=== PATIENT | male | born 1950 | race Caucasian/White ===

== ENCOUNTER 2018-01-11 08:04 | Inpatient (IN) | payer MEDICARE ==
[2018-01-11] VITALS (40 sets, daily range): BP systolic 99–132; BP diastolic 47–86
[~2018-01-11] VITALS: Ht 175.3 cm; Wt 95.4 kg
[~2018-01-11 08:04] MED LIST: AMIT10TA6 PO; AMLO5TAB2 PO; AMOX-429 PO; BENA20TA3 PO; CYCL10TA7 PO; FINA5TAB41 PO; GEMF600T3 PO; HYDR25TA PO; LEVO200T10 PO; MELO-108 PO; TAMS0.4C32 PO; ZOLP10TA2 PO
[2018-01-11] MEDS ORDERED: HEPARIN SODIUM 5000UNIT/ML 1ML VIAL ONE (08:11)
[2018-01-11] MEDS ORDERED: FENTANYL CITRATE PF 50 MCG/1 ML 2ML VIAL ONE ×2 (08:11→08:32)
[2018-01-11] MEDS ORDERED: LIDOCAINE HCL 2% 20ML ONE ×2 (08:14→10:29)
[2018-01-11] MEDS ORDERED: ISOVUE-370 50ML VIAL IV ONE (08:14)
[2018-01-11] MEDS ORDERED: IOPAMIDOL-370 100 ML VIAL IV ONE ×3 (08:14→10:28)
[2018-01-11] MEDS ORDERED: HEPARIN SODIUM 1000UNIT/ML 10ML VIAL ONE (08:14)
[2018-01-11] MEDS ORDERED: BIVALIRUDIN 250 MG/VIAL IV ONE ×3 (08:14→10:47)
[2018-01-11] MEDS ORDERED: DOPAMINE HCL 400 MG/D5%-WATER 0 ML IV ONE ×2 (08:15→10:28)
[2018-01-11] MEDS ORDERED: ATROPINE SULFATE 0.1 MG/ML 10 ML SYG IVP ONE ×2 (08:15→10:27)
[2018-01-11 08:20] LABS: BASOPHILS % (AUTO) 1.4 % (0.0-5.0); EOSINOPHILS % (AUTO) 2.6 % (0.0-8.0); HEMATOCRIT 38.5 % (42-54); LYMPHOCYTES % (AUTO) 44.6 % (21.0-51.0); MEAN CORPUSCULAR HEMOGLOBIN 30.7 pg (27.0-33.0); MEAN CORPUSCULAR HGB CONC 34.6 g/dL (32.0-36.0); MEAN CORPUSCULAR VOLUME 88.6 fL (79-99); MONOCYTES % (AUTO) 11.4 % (3.0-13.0); PLATELET COUNT (AUTO) 355 K/uL (130-400); RED BLOOD CELL COUNT(AUTO) 4.34 MIL/uL (4.50-6.20); RED CELL DISTRIBUTION WIDTH 13.4 % (11.0-15.5)
[2018-01-11] MEDS ORDERED: ONDANSETRON HCL MDV 20ML 2 MG/ML VIAL ONE ×2 (08:21→12:45)
[2018-01-11] MEDS ORDERED: MIDAZOLAM HCL 1 MG/ML 2ML VIAL ONE (08:31)
[2018-01-11] MEDS ORDERED: DiphenhydrAMINE HCL 50 MG/ML VIAL ONE (08:31)
[2018-01-11 08:36] LABS: PARTIAL THROMBOPLASTIN TIME 24.5 SEC (26.3-35.5); PROTHROMBIN TIME 10.5 SEC (9.6-11.6)
[2018-01-11 08:42] LABS: ALANINE AMINOTRANSFERASE 12 U/L (12-78); ALBUMIN 3.5 g/dL (3.5-5.0); ASPARTATE AMINOTRANSFERASE 18 U/L (10-37); BILIRUBIN,TOTAL 0.5 mg/dL (0.2-1.0); CARBON DIOXIDE 22 mmol/L (21-32); CHLORIDE 98 mmol/L (101-111); CREATINE KINASE MB < 0.5 ng/mL (0.5-3.6); CREATINE KINASE, TOTAL 172 U/L (21-232); CREATININE 1.1 mg/dL (0.5-1.5); GLOMERULAR FILTR. RATE CALC 71 mL/min (>60); GLUCOSE,RANDOM 178 mg/dL (70-105); SODIUM SERUM 133 mmol/L (136-145); TOTAL PROTEIN, SERUM 6.8 g/dL (6.0-8.3); UREA NITROGEN, BLOOD 14 mg/dL (7-18)
[2018-01-11 08:50] LABS: POTASSIUM 2.7 mmol/L (3.5-5.1)
[2018-01-11] MEDS ORDERED: MORPHINE SULFATE 2 MG/ML 1ML SYG ONE ×2 (08:59→09:06)
[2018-01-11] MEDS ORDERED: TICAGRELOR 90 MG TABLET ONE (09:44)
[2018-01-11] MEDS ORDERED: SODIUM CHLORIDE 0.9% 1000ML 1,000 ML IV SCH (09:59)
[2018-01-11] MEDS ORDERED: ONDANSETRON HCL 4 MG/2 ML VIAL IVP PRN (10:00)
[2018-01-11] MEDS ORDERED: ACETAMINOPHEN 325 MG TAB PO PRN (10:00)
[2018-01-11] MEDS ORDERED: ACETAMINOPHEN-CODEINE 300/30MG TAB PO PRN ×2 (10:00)
[2018-01-11] MEDS ORDERED: IOPAMIDOL-370 75 ML VIAL IV ONE (10:28)
[2018-01-11] MEDS ORDERED: NITROGLYCERIN 5 MG/ML 10 ML VIAL IV ONE (10:34)
[2018-01-11] MEDS ORDERED: EPTIFIBATIDE 2 MG/ML 10 ML VIAL IVP ONE (10:53)
[2018-01-11] MEDS ORDERED: EPTIFIBATIDE 75MG/100ML BOTTLE 100 ML IV ONE (10:53)
[2018-01-11] MEDS ORDERED: ONDANSETRON HCL MDV 20ML 2 MG/ML VIAL IVP PRN (13:00)
[2018-01-11] MEDS ORDERED: POTASSIUM CHLORIDE 10% ELIXIR 20 MEQ/15 ML UDCUP PO PRN (13:45)
[2018-01-11] MEDS ORDERED: AMIODARONE HCL 150 MG in DEXTROSE 5%-WATER 100 ML IV SCH (13:45)
[2018-01-11] MEDS ORDERED: AMIODARONE HCL 900 MG in DEXTROSE 5%-WATER 500 ML IV SCH (13:45)
[2018-01-11] MEDS ORDERED: LIDOCAINE HCL-MPF 1% 2ML VIAL IVP PRN (13:45)
[2018-01-11] MEDS: POTASSIUM CHLORIDE 20MEQ/100ML 100 ML IV PRN ×2 (13:56→14:45)
[2018-01-11] MEDS ORDERED: MAGNESIUM 2GM PREMIX 50ML 50 ML IV PRN (14:30)
[2018-01-11 16:09] LABS: CREATININE 0.9 mg/dL (0.5-1.5); MAGNESIUM 2.3 mg/dL (1.80-2.40); POTASSIUM 4.2 mmol/L (3.5-5.1)
[2018-01-11] MEDS: EPTIFIBATIDE 75MG/100ML BOTTLE 100 ML IV SCH ×2 (16:28→22:55)
[2018-01-11] MEDS ORDERED: METOPROLOL TARTRATE 25 MG TAB PO SCH (16:30)
[2018-01-11] MEDS ORDERED: [UNRECOGNIZED DRUG - OTHER] PO (18:44)
[2018-01-11] MEDS: METOPROLOL TARTRATE 25 MG TAB PO SCH (21:51)
[2018-01-11] MEDS: ATORVASTATIN CALCIUM 20 MG TABLET PO SCH (21:51)
[2018-01-11] MEDS: TICAGRELOR 90 MG TABLET PO SCH (21:52)
[2018-01-11] MEDS: TEMAZEPAM 30 MG CAP PO PRN (22:03)
[2018-01-12] VITALS (10 sets, daily range): BP systolic 90–128; BP diastolic 45–76
[2018-01-12 03:30] LABS: HEMATOCRIT 33.1 % (42-54); MEAN CORPUSCULAR HEMOGLOBIN 32.2 pg (27.0-33.0); MEAN CORPUSCULAR HGB CONC 36.1 g/dL (32.0-36.0); MEAN CORPUSCULAR VOLUME 89.3 fL (79-99); PLATELET COUNT (AUTO) 285 K/uL (130-400); RED CELL DISTRIBUTION WIDTH 13.8 % (11.0-15.5); WHITE BLOOD COUNT (AUTO) 11.1 K/uL (4.8-10.8)
[2018-01-12 04:02] LABS: CREATINE KINASE MB 198.2 ng/mL (0.5-3.6); CREATININE 0.9 mg/dL (0.5-1.5); MAGNESIUM 2.1 mg/dL (1.80-2.40); POTASSIUM 3.2 mmol/L (3.5-5.1); THYROID STIMULATING HORMONE 0.07 uIU/mL (0.36-3.74)
[2018-01-12 04:49] LABS: TROPONIN I 53.13 ng/mL (0.00-0.06)
[2018-01-12] MEDS: LISINOPRIL 10 MG TABLET PO SCH (08:31)
[2018-01-12] MEDS: FAMOTIDINE 20MG TAB 20 MG TAB PO SCH ×2 (08:31→20:22)
[2018-01-12] MEDS: ASPIRIN 81MG TAB.CHEW PO SCH (08:31)
[2018-01-12] MEDS: METOPROLOL TARTRATE 25 MG TAB PO SCH ×2 (08:31→20:22)
[2018-01-12] MEDS: TICAGRELOR 90 MG TABLET PO SCH ×2 (08:31→20:22)
[2018-01-12] MEDS: AMIODARONE HCL 200 MG TABLET PO SCH ×2 (09:36→20:22)
[2018-01-12] MEDS: LEVOTHYROXINE 100 MCG TABLET PO SCH (09:53)
[2018-01-12] MEDS: BENAZEPRIL HCL 10 MG TABLET PO SCH (12:00)
[2018-01-12] MEDS: FINASTERIDE 5 MG TABLET PO SCH (12:13)
[2018-01-12] MEDS: POTASSIUM CHLORIDE 20 MEQ ERTAB PO PRN ×2 (20:21→23:07)
[2018-01-12] MEDS: ATORVASTATIN CALCIUM 20 MG TABLET PO SCH (20:22)
[2018-01-12] MEDS: TAMSULOSIN HCL 0.4 MG CAP.ER.24H PO SCH (20:22)
[2018-01-12] MEDS: GEMFIBROZIL 600 MG TABLET PO SCH (20:22)
[2018-01-12] MEDS: [UNRECOGNIZED DRUG - OTHER] PO SCH (21:00)
[2018-01-12] MEDS: TEMAZEPAM 30 MG CAP PO PRN (21:27)
[2018-01-13] VITALS: BP 97/68
[2018-01-13 04:00] VITALS: BP 98/66
[2018-01-13 04:13] LABS: CREATININE 0.9 mg/dL (0.5-1.5); POTASSIUM 3.7 mmol/L (3.5-5.1)
[2018-01-13] MEDS: POTASSIUM CHLORIDE 20 MEQ ERTAB PO PRN ×2 (06:51→10:02)
[2018-01-13] MEDS: LEVOTHYROXINE 100 MCG TABLET PO SCH (06:52)
[2018-01-13 07:36] VITALS: BP 123/76
[2018-01-13] MEDS ORDERED: AMLODIPINE BESYLATE 5 MG TAB PO SCH (09:00)
[2018-01-13] MEDS ORDERED: HYDROCHLOROTHIAZIDE 25 MG TABLET PO SCH (09:00)
[2018-01-13] MEDS: [UNRECOGNIZED DRUG - OTHER] PO SCH (09:00)
[2018-01-13] MEDS ORDERED: TICA90TA PO (09:15)
[2018-01-13] MEDS ORDERED: METO25 PO (09:15)
[2018-01-13] MEDS ORDERED: ASPI-1005 PO (09:15)
[2018-01-13] MEDS ORDERED: ATOR20TA65 PO (09:15)
[2018-01-13] MEDS: TICAGRELOR 90 MG TABLET PO SCH (10:00)
[2018-01-13] MEDS: LISINOPRIL 10 MG TABLET PO SCH (10:00)
[2018-01-13] MEDS: AMIODARONE HCL 200 MG TABLET PO SCH (10:00)
[2018-01-13] MEDS: GEMFIBROZIL 600 MG TABLET PO SCH (10:00)
[2018-01-13] MEDS: FAMOTIDINE 20MG TAB 20 MG TAB PO SCH (10:01)
[2018-01-13] MEDS: METOPROLOL TARTRATE 25 MG TAB PO SCH (10:01)
[2018-01-13] MEDS: TAMSULOSIN HCL 0.4 MG CAP.ER.24H PO SCH (10:01)
[2018-01-13] MEDS: ASPIRIN 81MG TAB.CHEW PO SCH (10:01)
[2018-01-13] MEDS: PHENAZOPYRIDINE HCL 200 MG TABLET PO SCH ×2 (10:55→19:10)
[2018-01-13 11:26] VITALS: BP 112/74
[2018-01-13] MEDS: BENAZEPRIL HCL 10 MG TABLET PO SCH (12:00)
[2018-01-13] MEDS: FINASTERIDE 5 MG TABLET PO SCH (13:58)
[2018-01-13 16:38] VITALS: BP 102/59
[2018-01-13] MEDS ORDERED: PHENAZOPYRIDINE HCL 200 MG TABLET PO SCH (21:00)
== END 2018-01-13 19:11 | disposition home or self-care (01) | DRG 246 ==
LOC: EDH 08:04 → EDHIP 08:25 → 2CV 12:10 → 2BH 18:32 → 2AH 01-12 20:56
PROVIDERS: ADMIT Internal Medicine Cardiovascular Disease; ATTEND Internal Medicine Cardiovascular Disease
PROC: 027034Z Dilation of Coronary Artery, One Artery with Drug-eluting Intraluminal Device, Percutaneous Approach (ICD-10-PCS; principal; 2018-01-11)
PROC: B2151ZZ Fluoroscopy of Left Heart using Low Osmolar Contrast (ICD-10-PCS; 2018-01-11)
PROC: 4A023N8 Measurement of Cardiac Sampling and Pressure, Bilateral, Percutaneous Approach (ICD-10-PCS; 2018-01-11)
PROC: B2111ZZ Fluoroscopy of Multiple Coronary Arteries using Low Osmolar Contrast (ICD-10-PCS; 2018-01-11)
DX: I21.09 ST elevation (STEMI) myocardial infarction involving other coronary artery of anterior wall (principal); I50.23 Acute on chronic systolic (congestive) heart failure; I47.2 Ventricular tachycardia; I48.91 Unspecified atrial fibrillation; E83.42 Hypomagnesemia; N31.9 Neuromuscular dysfunction of bladder, unspecified; E03.9 Hypothyroidism, unspecified; Q05.9 Spina bifida, unspecified; E87.6 Hypokalemia; I10 Essential (primary) hypertension; M19.90 Unspecified osteoarthritis, unspecified site; Z80.0 Family history of malignant neoplasm of digestive organs; Z82.49 Family history of ischemic heart disease and other diseases of the circulatory system
CPT/HCPCS: 36415; 71045; 80048; 80053; 80061; 82550; 82553; 83735; 83874; 84443; 84484; 85025; 85027; 85347; 85610; 85730; 93005; 93306; 93458; 99152; 99153; A4344; C1725; C1760; C1769; C1887; C1894; C9600; C9606; J0282; J0461; J0583; J1200; J1265; J1327; J1644; J2250; J3010; J3475; J3480; J3490; J7060; Q9967

== ENCOUNTER 2018-01-29 19:27 | Emergency (ER) | payer MEDICARE ==
[~2018-01-29 19:27] MED LIST changes: -AMIT10TA6 PO; -AMLO5TAB2 PO; -AMOX-429 PO; +ASPI-1005 PO; +ATOR20TA65 PO; +BENA20TA10 PO; -BENA20TA3 PO; -CYCL10TA7 PO; -HYDR25TA PO; +METO25 PO; +TICA90TA PO; -ZOLP10TA2 PO
[2018-01-29 19:42] LABS: BASOPHILS % (AUTO) 1.2 % (0.0-5.0); EOSINOPHILS % (AUTO) 3.2 % (0.0-8.0); HEMATOCRIT 36.7 % (42-54); MEAN CORPUSCULAR HEMOGLOBIN 30.6 pg (27.0-33.0); MEAN CORPUSCULAR VOLUME 90.1 fL (79-99); MONOCYTES % (AUTO) 9.9 % (3.0-13.0); NEUTROPHILS % (AUTO) 67.7 % (40.0-77.0); PLATELET COUNT (AUTO) 429 K/uL (130-400); RED BLOOD CELL COUNT(AUTO) 4.08 MIL/uL (4.50-6.20); RED CELL DISTRIBUTION WIDTH 14.2 % (11.0-15.5)
[2018-01-29 19:51] LABS: CREATININE 1.2 mg/dL (0.5-1.5); POTASSIUM 3.4 mmol/L (3.5-5.1)
[2018-01-29 19:52] LABS: PARTIAL THROMBOPLASTIN TIME 26.8 SEC (26.3-35.5); PROTHROMBIN TIME 10.5 SEC (9.6-11.6)
[2018-01-29 19:56] LABS: ALBUMIN 3.5 g/dL (3.5-5.0); BILIRUBIN,TOTAL 0.4 mg/dL (0.2-1.0); TOTAL PROTEIN, SERUM 7.1 g/dL (6.0-8.3)
[2018-01-29] MEDS ORDERED: ACETAMINOPHEN 325 MG TAB ONE (20:33)
== END 2018-01-29 20:57 | disposition home or self-care (01) ==
LOC: EDH 19:27
DX: S00.03XA Contusion of scalp, initial encounter (principal); I10 Essential (primary) hypertension; E07.9 Disorder of thyroid, unspecified; E78.00 Pure hypercholesterolemia, unspecified; M19.90 Unspecified osteoarthritis, unspecified site; I25.2 Old myocardial infarction; K75.9 Inflammatory liver disease, unspecified; Z90.49 Acquired absence of other specified parts of digestive tract; Z98.890 Other specified postprocedural states; W22.8XXA Striking against or struck by other objects, initial encounter; Y93.89 Activity, other specified; Y92.098 Other place in other non-institutional residence as the place of occurrence of the external cause; Y99.8 Other external cause status
CPT/HCPCS: 36415; 70450; 80053; 85025; 85610; 85730

== ENCOUNTER 2018-12-10 08:20 | Inpatient (IN) | payer MEDICARE ==
[~2018-12-10] VITALS: Ht 175.3 cm; Wt 96.1 kg
[~2018-12-10 08:20] MED LIST changes: -GEMF600T3 PO; +GEMF600T5 PO
[2018-12-10 09:10] LABS: BASOPHILS % (AUTO) 0.3 % (0.0-5.0); EOSINOPHILS % (AUTO) 0.1 % (0.0-8.0); LYMPHOCYTES % (AUTO) 3.5 % (21.0-51.0); MEAN CORPUSCULAR HEMOGLOBIN 30.3 pg (27.0-33.0); MEAN CORPUSCULAR HGB CONC 33.6 g/dL (32.0-36.0); MEAN CORPUSCULAR VOLUME 90.2 fL (79-99); MONOCYTES % (AUTO) 6.5 % (3.0-13.0); NEUTROPHILS % (AUTO) 89.6 % (40.0-77.0); PLATELET COUNT (AUTO) 360 K/uL (130-400); RED CELL DISTRIBUTION WIDTH 14.5 % (11.0-15.5); WHITE BLOOD COUNT (AUTO) 19.3 K/uL (4.8-10.8)
[2018-12-10 09:14] LABS: APPEARANCE,URINE Clear (CLEAR); BILIRUBIN,URINE Negative (NEGATIVE); COLOR,URINE Yellow (YELLOW); GLUCOSE, URINE (UA) Negative (NEGATIVE); KETONES,URINE Trace mg/dL (NEGATIVE); LEUKOCYTE ESTERASE ,URINE Moderate (NEGATIVE); NITRATE,URINE Negative (NEGATIVE); OCCULT BLOOD,URINE Negative (NEGATIVE); PH,URINE >=9.0 (5.0-8.0); PROTEIN,URINE Negative (NEGATIVE)
[2018-12-10] MEDS ORDERED: ACETAMINOPHEN EXTRA STRENGTH 500 MG TABLET ONE (09:16)
[2018-12-10] MEDS ORDERED: SODIUM CHLORIDE 0.9% 1000ML 1,000 ML IV ONE ×4 (09:16→16:44)
[2018-12-10 09:28] LABS: INR 0.98 (0.85-1.15); PARTIAL THROMBOPLASTIN TIME 25.6 SEC (26.3-35.5); PROTHROMBIN TIME 10.3 SEC (9.6-11.6)
[2018-12-10 09:30] LABS: CARBON DIOXIDE 22 mmol/L (21-32); CHLORIDE 100 mmol/L (101-111); CREATININE 0.9 mg/dL (0.5-1.5); GLOMERULAR FILTR. RATE CALC 89 mL/min (>60); GLUCOSE,RANDOM 147 mg/dL (70-105); POTASSIUM 3.4 mmol/L (3.5-5.1); SODIUM SERUM 134 mmol/L (136-145); UREA NITROGEN, BLOOD 15 mg/dL (7-18)
[2018-12-10 09:38] LABS: BACTERIA,URINE None Seen /HPF (None Seen); RBC,URINE 0-1 /HPF (0-1); SQUAMOUS EPITHELIAL CELL,UR 0-2 /HPF (0-2)
[2018-12-10 09:42] LABS: ALANINE AMINOTRANSFERASE 16 U/L (12-78); ALBUMIN 3.6 g/dL (3.5-5.0); ASPARTATE AMINOTRANSFERASE 27 U/L (10-37); BILIRUBIN,TOTAL 0.9 mg/dL (0.2-1.0); CREATINE KINASE, TOTAL 250 U/L (21-232); MYOGLOBIN 76 ng/mL (10-92); TOTAL PROTEIN, SERUM 7.2 g/dL (6.0-8.3); TROPONIN I < 0.04 ng/mL (0.00-0.06)
[2018-12-10] MEDS ORDERED: SODIUM CHLORIDE 0.9% 50 ML IV ONE (10:47)
[2018-12-10] MEDS ORDERED: CEFTRIAXONE SODIUM 1 GM ONE (10:47)
[2018-12-10] MEDS ORDERED: ONDANSETRON HCL 4 MG/2 ML VIAL IV PRN (12:45)
[2018-12-10] MEDS ORDERED: ACETAMINOPHEN 325 MG TAB PO PRN ×2 (12:45)
[2018-12-10] MEDS ORDERED: MORPHINE SULFATE 2 MG/ML 1ML SYG IV PRN (12:45)
[2018-12-10] MEDS ORDERED: LACTULOSE 20 GM/30 ML UDCUP PO PRN (12:45)
[2018-12-10] MEDS ORDERED: HYDRALAZINE HCL 20 MG/ML VIAL IV PRN (12:45)
[2018-12-10 16:29] VITALS: BP 148/81
[2018-12-10] MEDS ORDERED: FURO20TA4 PO (16:29)
[2018-12-10] MEDS ORDERED: AMLO5TAB9 PO (16:29)
[2018-12-10] MEDS ORDERED: NITR0.4T50 SL (16:29)
[2018-12-10] MEDS ORDERED: ENOXAPARIN SODIUM 40 MG/0.4 ML SYRINGE SQ ONE (16:44)
[2018-12-10] MEDS ORDERED: SODIUM CHLORIDE 0.9% 100 ML IV ONE (16:45)
[2018-12-10] MEDS ORDERED: ZOSYN 3.375GM+NS 50ML 50 ML IV ONE (16:45)
[2018-12-10] MEDS ORDERED: ACETAMINOPHEN 325 MG TAB ONE (17:03)
[2018-12-10] MEDS: ZOSYN 3.375GM+NS 50ML 50 ML IV SCH (21:00)
[2018-12-10] MEDS: FAMOTIDINE/PF 20 MG/2 ML VIAL IV SCH (21:00)
[2018-12-10] MEDS: SODIUM CHLORIDE 0.9% 1000ML 1,000 ML IV SCH (22:34)
[2018-12-10 23:00] VITALS: BP 117/71
[2018-12-10] MEDS ORDERED: ASPI-1181 PO (23:41)
[2018-12-11 04:30] VITALS: BP 112/64
[2018-12-11] MEDS: ZOSYN 3.375GM+NS 50ML 50 ML IV SCH ×3 (04:53→21:38)
[2018-12-11 08:00] VITALS: BP 121/67
[2018-12-11] MEDS: ENOXAPARIN SODIUM 40 MG/0.4 ML SYRINGE SQ SCH ×2 (09:00→09:28)
[2018-12-11] MEDS: FAMOTIDINE/PF 20 MG/2 ML VIAL IV SCH ×2 (11:09→21:38)
[2018-12-11 11:26] LABS: BASOPHILS % (AUTO) 0.7 % (0.0-5.0); EOSINOPHILS % (AUTO) 0.6 % (0.0-8.0); HEMATOCRIT 33.5 % (42-54); LYMPHOCYTES % (AUTO) 9.1 % (21.0-51.0); MEAN CORPUSCULAR HEMOGLOBIN 30.1 pg (27.0-33.0); MEAN CORPUSCULAR HGB CONC 33.2 g/dL (32.0-36.0); MEAN CORPUSCULAR VOLUME 90.7 fL (79-99); MONOCYTES % (AUTO) 7.5 % (3.0-13.0); NEUTROPHILS % (AUTO) 82.1 % (40.0-77.0); NUCLEATED RED BLOOD CELLS 0.1 % (0.0-0.19); PLATELET COUNT (AUTO) 291 K/uL (130-400); RED CELL DISTRIBUTION WIDTH 14.9 % (11.0-15.5); WHITE BLOOD COUNT (AUTO) 14.2 K/uL (4.8-10.8)
[2018-12-11 11:50] LABS: POTASSIUM 3.5 mmol/L (3.5-5.1)
[2018-12-11 12:00] VITALS: BP 115/77
[2018-12-11] MEDS: SODIUM CHLORIDE 0.9% 1000ML 1,000 ML IV SCH ×2 (13:07→17:58)
[2018-12-11 16:00] VITALS: BP 114/67
[2018-12-11] MEDS ORDERED: ATORVASTATIN CALCIUM 40 MG TABLET PO SCH (21:00)
[2018-12-11 21:35] VITALS: BP 130/84
[2018-12-11] MEDS: TICAGRELOR 90 MG TABLET PO SCH (21:38)
[2018-12-11] MEDS: METOPROLOL TARTRATE 25 MG TAB PO SCH (21:38)
[2018-12-12 01:28] VITALS: BP 114/60
[2018-12-12 04:33] LABS: HEMATOCRIT 30.4 % (42-54); MEAN CORPUSCULAR HEMOGLOBIN 30.9 pg (27.0-33.0); MEAN CORPUSCULAR HGB CONC 34.3 g/dL (32.0-36.0); MEAN CORPUSCULAR VOLUME 90.2 fL (79-99); PLATELET COUNT (AUTO) 269 K/uL (130-400); RED BLOOD CELL COUNT(AUTO) 3.37 MIL/uL (4.50-6.20); RED CELL DISTRIBUTION WIDTH 14.9 % (11.0-15.5); WHITE BLOOD COUNT (AUTO) 10.2 K/uL (4.8-10.8)
[2018-12-12 04:57] VITALS: BP 108/65
[2018-12-12 04:57] LABS: ALBUMIN 2.6 g/dL (3.5-5.0); BILIRUBIN,TOTAL 0.5 mg/dL (0.2-1.0); CREATININE 0.9 mg/dL (0.5-1.5); MAGNESIUM 1.7 mg/dL (1.80-2.40); POTASSIUM 3.3 mmol/L (3.5-5.1); TOTAL PROTEIN, SERUM 5.8 g/dL (6.0-8.3)
[2018-12-12] MEDS: ZOSYN 3.375GM+NS 50ML 50 ML IV SCH ×2 (05:07→14:41)
[2018-12-12] MEDS: SODIUM CHLORIDE 0.9% 1000ML 1,000 ML IV SCH ×2 (05:07→12:01)
[2018-12-12] MEDS ORDERED: LEVOTHYROXINE 100 MCG TABLET PO SCH (06:30)
[2018-12-12 08:00] VITALS: BP 120/71
--- NOTE | 2018-12-12 08:28 | NUR ---
PAGED HOSPITALIST PAGED LEADERSHIP INTERN HOSPITALIST USING ANSWERING SERVICE REGARDING POTASSIUM 3.3 AND MAGNESIUM 1.7. AWAITING CALLBACK.
[2018-12-12] MEDS ORDERED: MAGNESIUM 2GM PREMIX 50ML 50 ML IV PRN (08:45)
[2018-12-12] MEDS ORDERED: POTASSIUM CHLORIDE 10% ELIXIR 20 MEQ/15 ML UDCUP PO PRN (08:45)
[2018-12-12] MEDS ORDERED: POTASSIUM CHLORIDE 20MEQ/100ML 100 ML IV PRN (08:45)
[2018-12-12] MEDS ORDERED: LIDOCAINE HCL-MPF 1% 2ML VIAL IVP PRN (08:45)
[2018-12-12] MEDS: METOPROLOL TARTRATE 25 MG TAB PO SCH (09:00)
[2018-12-12] MEDS ORDERED: AMLODIPINE BESYLATE 5 MG TAB PO SCH (09:00)
[2018-12-12] MEDS ORDERED: ASPIRIN 81 MG EC TAB PO SCH (09:00)
[2018-12-12] MEDS: TICAGRELOR 90 MG TABLET PO SCH (09:00)
[2018-12-12] MEDS: POTASSIUM CHLORIDE 20 MEQ ERTAB PO PRN ×3 (10:36→16:57)
[2018-12-12] MEDS: FAMOTIDINE/PF 20 MG/2 ML VIAL IV SCH (10:37)
[2018-12-12] MEDS: ENOXAPARIN SODIUM 40 MG/0.4 ML SYRINGE SQ SCH (10:38)
[2018-12-12 11:00] VITALS: BP 114/68
[2018-12-12] MEDS ORDERED: MELOXICAM 7.5 MG TABLET PO SCH (12:00)
[2018-12-12] MEDS ORDERED: BENAZEPRIL HCL 10 MG TABLET PO SCH (12:00)
[2018-12-12 16:00] VITALS: BP 108/69
--- NOTE | 2018-12-12 17:00 | NUR ---
DISCHARGE TEACHING DISCHARGE TEACHING PROVIDED TO PATIENT. PROVIDED RX TEACHING AND ORIGINAL RX GIVEN TO PATIENT. PATIENT SELF-CATHETERIZES AT HOME, PROVIDED AT HOME URINE STRAIGHT CATHETER TEACHING. PATIENT VERBALIZED TEACHING OF DISCHARGE TEACHING. REMOVED 20G IV FROM LEFT FA, CATHETER INTACT.
== END 2018-12-12 17:24 | disposition home or self-care (01) | DRG 872 ==
LOC: EDH 08:20 → EDHIP 12:34 → 4CH 22:32
PROVIDERS: ADMIT Internal Medicine; ATTEND Internal Medicine
DX: A41.50 Gram-negative sepsis, unspecified (principal); E87.1 Hypo-osmolality and hyponatremia; N39.0 Urinary tract infection, site not specified; E86.1 Hypovolemia; Q05.9 Spina bifida, unspecified; E03.9 Hypothyroidism, unspecified; I10 Essential (primary) hypertension; N31.9 Neuromuscular dysfunction of bladder, unspecified; E87.6 Hypokalemia; M19.90 Unspecified osteoarthritis, unspecified site; I25.10 Atherosclerotic heart disease of native coronary artery without angina pectoris; E66.9 Obesity, unspecified; Z68.31 Body mass index [BMI] 31.0-31.9, adult; I25.2 Old myocardial infarction; Z87.891 Personal history of nicotine dependence; Z95.5 Presence of coronary angioplasty implant and graft; Z87.440 Personal history of urinary (tract) infections; Z80.0 Family history of malignant neoplasm of digestive organs; Z80.3 Family history of malignant neoplasm of breast; Z82.0 Family history of epilepsy and other diseases of the nervous system; Z82.49 Family history of ischemic heart disease and other diseases of the circulatory system; Z83.3 Family history of diabetes mellitus; Z82.5 Family history of asthma and other chronic lower respiratory diseases; Z82.3 Family history of stroke
CPT/HCPCS: 36415; 71045; 80048; 80053; 81001; 82550; 83605; 83735; 83874; 84484; 85025; 85027; 85610; 85730; 87040; 87088; 87804; 93005; 99291; G0378; J0696; J1650; J2543; J3475; J3490; J7030

== ENCOUNTER 2020-01-19 20:53 | Inpatient (IN) | payer MEDICARE ==
[~2020-01-19] VITALS: Ht 175.3 cm; Wt 90.3 kg
[~2020-01-19 20:53] MED LIST changes: +AMLO5TAB9 PO; -ASPI-1005 PO; +ASPI-1181 PO; +FURO20TA4 PO; +NITR0.4T50 SL
[2020-01-19 21:20] LABS: EOSINOPHILS % (AUTO) 2.4 % (0.0-8.0); LYMPHOCYTES % (AUTO) 17.7 % (21.0-51.0); MEAN CORPUSCULAR HEMOGLOBIN 29.5 pg (27.0-33.0); MEAN CORPUSCULAR HGB CONC 34.5 g/dL (32.0-36.0); MEAN CORPUSCULAR VOLUME 85.5 fL (79-99); MONOCYTES % (AUTO) 9.1 % (3.0-13.0); NEUTROPHILS % (AUTO) 69.4 % (40.0-77.0); PLATELET COUNT (AUTO) 393 K/uL (130-400); RED BLOOD CELL COUNT(AUTO) 3.86 MIL/uL (4.50-6.20); RED CELL DISTRIBUTION WIDTH 19.9 % (11.0-15.5)
[2020-01-19 21:23] LABS: APPEARANCE,URINE Clear (CLEAR); BILIRUBIN,URINE Moderate (NEGATIVE); COLOR,URINE Dark Yellow (YELLOW); GLUCOSE, URINE (UA) Negative (NEGATIVE); KETONES,URINE Negative (NEGATIVE); LEUKOCYTE ESTERASE ,URINE Negative (NEGATIVE); NITRATE,URINE Negative (NEGATIVE); OCCULT BLOOD,URINE Trace (NEGATIVE); PROTEIN,URINE Negative (NEGATIVE)
[2020-01-19 21:29] LABS: WBC,URINE 0-1 /HPF (0-1)
[2020-01-19 21:30] LABS: BACTERIA,URINE Rare /HPF (None Seen); SQUAMOUS EPITHELIAL CELL,UR Rare /HPF (0-2)
[2020-01-19 21:40] LABS: CREATININE 0.9 mg/dL (0.5-1.5); POTASSIUM 3.4 mmol/L (3.5-5.1)
[2020-01-19 21:42] LABS: INR 0.95 (0.85-1.15); PARTIAL THROMBOPLASTIN TIME 28.2 SEC (26.3-35.5); PROTHROMBIN TIME 10.3 SEC (9.6-11.6)
[2020-01-19 21:52] LABS: ALBUMIN 3.1 g/dL (3.5-5.0); BILIRUBIN,TOTAL 15.2 mg/dL (0.2-1.0); TOTAL PROTEIN, SERUM 7.1 g/dL (6.0-8.3)
[2020-01-19 21:55] LABS: BILIRUBIN,DIRECT 12.8 mg/dL (0.0-0.3)
[2020-01-19] MEDS ORDERED: IOHEXOL-350 75 ML VIAL IV ONE (22:08)
[2020-01-19] MEDS ORDERED: MORPHINE SULFATE 4 MG/1ML SYG ONE (22:12)
[2020-01-19] MEDS ORDERED: ONDANSETRON HCL 4 MG/2 ML VIAL ONE (22:13)
[2020-01-19] MEDS ORDERED: SODIUM CHLORIDE 0.9% 500ML 500 ML IV ONE (22:13)
[2020-01-19] MEDS ORDERED: ZOSYN 3.375GM+NS 50ML 50 ML IV ONE (23:02)
[2020-01-19] MEDS: PANTOPRAZOLE 40 MG/VIAL IVP SCH (23:46)
[2020-01-20] VITALS (7 sets, daily range): BP systolic 112–135; BP diastolic 63–79
[2020-01-20] MEDS ORDERED: LIDOCAINE HCL-MPF 1% 2ML VIAL IV PRN (00:15)
--- NOTE | 2020-01-20 02:07 | NUR ---
SPOKE WITH MALI SEAY ABOUT PATIENT COMPLAINED OF HEADACHE 4/10, WITH NAUSEA. INFORMED HER THAT ZOFRAN IV HAS BEEN GIVEN PRN ORDERED. MALI ORDERED FINAL WOULD BE 650 MG ONE TIME DOSE.
[2020-01-20] MEDS: MORPHINE SULFATE 2 MG/ML 1ML SYG IVP PRN ×3 (02:43→20:19)
[2020-01-20] MEDS ORDERED: GEMF600T5 PO (06:58)
[2020-01-20] MEDS: ONDANSETRON HCL 4 MG/2 ML VIAL IV PRN (07:03)
[2020-01-20 07:24] LABS: BASOPHILS % (AUTO) 0.9 % (0.0-5.0); LYMPHOCYTES % (AUTO) 9.9 % (21.0-51.0); MEAN CORPUSCULAR HEMOGLOBIN 28.4 pg (27.0-33.0); MEAN CORPUSCULAR HGB CONC 32.9 g/dL (32.0-36.0); MEAN CORPUSCULAR VOLUME 86.4 fL (79-99); MONOCYTES % (AUTO) 9.1 % (3.0-13.0); NEUTROPHILS % (AUTO) 77.6 % (40.0-77.0); PLATELET COUNT (AUTO) 372 K/uL (130-400); RED BLOOD CELL COUNT(AUTO) 3.59 MIL/uL (4.50-6.20); WHITE BLOOD COUNT (AUTO) 9.6 K/uL (4.8-10.8)
--- NOTE | 2020-01-20 08:15 | NUR ---
GI CONSULT PAGED DR. GARCIA AT THIS TIME REGARDING NEW CONSULT. NO ANSWER AT THIS TIME.
[2020-01-20 09:18] LABS: ALBUMIN 2.6 g/dL (3.5-5.0); CREATININE 0.8 mg/dL (0.5-1.5); POTASSIUM 3.4 mmol/L (3.5-5.1); TOTAL PROTEIN, SERUM 6.3 g/dL (6.0-8.3)
[2020-01-20 09:25] LABS: BILIRUBIN,DIRECT 14.6 mg/dL (0.0-0.3); BILIRUBIN,TOTAL 17.1 mg/dL (0.2-1.0)
[2020-01-20] MEDS: PANTOPRAZOLE 40 MG/VIAL IVP SCH (10:09)
[2020-01-20] MEDS: LACTULOSE 20 GM/30 ML UDCUP PO SCH ×2 (10:09→21:00)
--- NOTE | 2020-01-20 10:30 | NUR ---
SPOKE TO DR PEREZ REGARDING PT COMPLAINT OF SEVERE WEAKNESS. INFORMED PT IS NPO AND NO IV FLUIDS INFUSING. NO ORDERS GIVEN, STATED WILL BE UP TO SEE PT.
--- NOTE | 2020-01-20 11:55 | NUR ---
INITIAL Patient lives with spouse, Marshall Cameron, [phone]. No home services. DME: BPM, cane, shower chair. Patient is able to complete ADL's independently and drives. PCP is Dr. Mike Burgess. Pharmacy is [facility] in [place]. DCP is home Addendum: 01/20/20 at 1159 by DOMENICA OLEARY SS Amended: Links added.
--- NOTE | 2020-01-20 15:15 | NUR ---
SPOKE TO DR. GARCIA REGARDING NEW CONSULT AND RESULTS FROM IMAGING AND LABS. NEW ORDERS RECEIVED FOR ERCP AT 1000 IN AM AND START FULL LIQUID DIET THEN NPO AFTER MIDNIGHT. PATIENT INFORMED BY DR. PEREZ AND VOICED UNDERSTANDING.
[2020-01-20] MEDS ORDERED: ACETAMINOPHEN EXTRA STRENGTH 500 MG TABLET ONE (23:46)
[2020-01-20] MEDS ORDERED: ACETAMINOPHEN 325 MG TAB ONE (23:49)
[2020-01-21] VITALS (22 sets, daily range): BP systolic 110–160; BP diastolic 51–86
[2020-01-21] MEDS ORDERED: ACETAMINOPHEN 325 MG TAB ONE (01:58)
[2020-01-21] MEDS ORDERED: ACETAMINOPHEN 325 MG TAB PO ONE (02:00)
[2020-01-21] MEDS: ONDANSETRON HCL 4 MG/2 ML VIAL IV PRN (02:13)
[2020-01-21] MEDS ORDERED: SODIUM CHLORIDE 0.9% 1000ML 1,000 ML IV SCH (04:00)
[2020-01-21 04:33] LABS: EOSINOPHILS % (AUTO) 2.8 % (0.0-8.0); HEMATOCRIT 30.1 % (42-54); LYMPHOCYTES % (AUTO) 14.2 % (21.0-51.0); MEAN CORPUSCULAR HEMOGLOBIN 29.2 pg (27.0-33.0); MEAN CORPUSCULAR HGB CONC 33.6 g/dL (32.0-36.0); MONOCYTES % (AUTO) 9.1 % (3.0-13.0); NEUTROPHILS % (AUTO) 72.2 % (40.0-77.0); PLATELET COUNT (AUTO) 402 K/uL (130-400); RED BLOOD CELL COUNT(AUTO) 3.46 MIL/uL (4.50-6.20); RED CELL DISTRIBUTION WIDTH 20.1 % (11.0-15.5); WHITE BLOOD COUNT (AUTO) 8.7 K/uL (4.8-10.8)
[2020-01-21] MEDS: LEVOTHYROXINE 100 MCG TABLET PO SCH (04:54)
[2020-01-21 05:43] LABS: ALBUMIN 2.6 g/dL (3.5-5.0); CREATININE 0.7 mg/dL (0.5-1.5); MAGNESIUM 2.2 mg/dL (1.80-2.40); PHOSPHORUS 3.3 mg/dL (2.5-4.9); POTASSIUM 3.2 mmol/L (3.5-5.1); TOTAL PROTEIN, SERUM 6.4 g/dL (6.0-8.3)
[2020-01-21] MEDS: POTASSIUM CHLORIDE 20MEQ/100ML 100 ML IV PRN ×2 (07:53→16:18)
[2020-01-21] MEDS: PANTOPRAZOLE 40 MG/VIAL IVP SCH ×2 (09:00→21:42)
[2020-01-21] MEDS ORDERED: IOHEXOL-350 50ML VIAL IV ONE (09:07)
[2020-01-21] MEDS ORDERED: INDOMETHACIN 50 MG SUPP.RECT RC SCH (09:15)
[2020-01-21] MEDS ORDERED: SUCCINYLCHOLINE 200MG/10ML SYR ONE (09:37)
[2020-01-21] MEDS ORDERED: PROPOFOL 10 MG/ML 20ML VIAL IV ONE (09:51)
[2020-01-21] MEDS: MORPHINE SULFATE 2 MG/ML 1ML SYG IVP PRN (11:50)
[2020-01-21] MEDS: FINASTERIDE 5 MG TABLET PO SCH (12:00)
[2020-01-21] MEDS: TAMSULOSIN HCL 0.4 MG CAP.ER.24H PO SCH (16:15)
[2020-01-21] MEDS: LACTULOSE 20 GM/30 ML UDCUP PO SCH ×2 (16:16→21:00)
[2020-01-21] MEDS ORDERED: ATORVASTATIN CALCIUM 40 MG TABLET PO SCH (21:00)
[2020-01-21] MEDS: METOPROLOL TARTRATE 25 MG TAB PO SCH (21:42)
[2020-01-22 00:29] VITALS: BP 126/78
[2020-01-22 04:21] VITALS: BP 142/77
[2020-01-22 05:56] LABS: BASOPHILS % (AUTO) 1.4 % (0.0-5.0); EOSINOPHILS % (AUTO) 5.4 % (0.0-8.0); HEMATOCRIT 28.8 % (42-54); LYMPHOCYTES % (AUTO) 19.6 % (21.0-51.0); MEAN CORPUSCULAR HEMOGLOBIN 29.2 pg (27.0-33.0); MEAN CORPUSCULAR HGB CONC 32.6 g/dL (32.0-36.0); MEAN CORPUSCULAR VOLUME 89.4 fL (79-99); MONOCYTES % (AUTO) 9.1 % (3.0-13.0); NEUTROPHILS % (AUTO) 64.1 % (40.0-77.0); PLATELET COUNT (AUTO) 412 K/uL (130-400); RED BLOOD CELL COUNT(AUTO) 3.22 MIL/uL (4.50-6.20); RED CELL DISTRIBUTION WIDTH 19.4 % (11.0-15.5)
[2020-01-22 06:09] LABS: HEPATITIS A ANTIBODY IGM Negative (Negative); HEPATITIS B CORE IGM Negative (Negative); HEPATITIS Bs ANTIGEN SCREEN P Negative (Negative)
[2020-01-22] MEDS: LEVOTHYROXINE 100 MCG TABLET PO SCH (06:10)
[2020-01-22 06:24] LABS: ALBUMIN 2.4 g/dL (3.5-5.0); BILIRUBIN,DIRECT 4.5 mg/dL (0.0-0.3); BILIRUBIN,TOTAL 5.9 mg/dL (0.2-1.0); CREATININE 0.8 mg/dL (0.5-1.5); MAGNESIUM 1.7 mg/dL (1.80-2.40); PHOSPHORUS 2.7 mg/dL (2.5-4.9); POTASSIUM 3.3 mmol/L (3.5-5.1); TOTAL PROTEIN, SERUM 6.4 g/dL (6.0-8.3)
[2020-01-22 07:24] VITALS: BP 130/74
[2020-01-22] MEDS ORDERED: AMLODIPINE BESYLATE 5 MG TAB PO SCH (09:00)
[2020-01-22] MEDS ORDERED: FUROSEMIDE 20 MG TABLET PO SCH (09:00)
[2020-01-22] MEDS: TAMSULOSIN HCL 0.4 MG CAP.ER.24H PO SCH (10:31)
[2020-01-22] MEDS: FINASTERIDE 5 MG TABLET PO SCH (10:31)
[2020-01-22] MEDS: LACTULOSE 20 GM/30 ML UDCUP PO SCH (10:31)
[2020-01-22] MEDS: METOPROLOL TARTRATE 25 MG TAB PO SCH (10:31)
[2020-01-22] MEDS: PANTOPRAZOLE 40 MG/VIAL IVP SCH (10:31)
[2020-01-22 10:58] VITALS: BP 122/84
[2020-01-22] MEDS ORDERED: BENAZEPRIL HCL 10 MG TABLET PO SCH (12:00)
[2020-01-22] MEDS ORDERED: POTASSIUM CHLORIDE 20 MEQ ERTAB PO SCH (12:31)
[2020-01-22 15:32] VITALS: BP 112/77
[2020-01-22] MEDS ORDERED: LEVO500T2 PO (16:17)
[2020-01-22] MEDS ORDERED: METR500T PO (16:17)
== END 2020-01-22 20:10 | disposition home or self-care (01) | DRG 444 ==
LOC: EDH 20:53 → EDHIP 01-20 00:42 → 4DH 01-20 00:57
PROVIDERS: ADMIT Internal Medicine; ATTEND Internal Medicine
PROC: 0FC98ZZ Extirpation of Matter from Common Bile Duct, Via Natural or Artificial Opening Endoscopic (ICD-10-PCS; principal; 2020-01-21)
PROC: BF111ZZ Fluoroscopy of Biliary and Pancreatic Ducts using Low Osmolar Contrast (ICD-10-PCS; 2020-01-21)
DX: K80.50 Calculus of bile duct without cholangitis or cholecystitis without obstruction (principal); K72.00 Acute and subacute hepatic failure without coma; Z95.5 Presence of coronary angioplasty implant and graft; E03.9 Hypothyroidism, unspecified; E78.00 Pure hypercholesterolemia, unspecified; E78.5 Hyperlipidemia, unspecified; I10 Essential (primary) hypertension; I25.10 Atherosclerotic heart disease of native coronary artery without angina pectoris; M19.90 Unspecified osteoarthritis, unspecified site; K83.8 Other specified diseases of biliary tract; I25.2 Old myocardial infarction; Z80.0 Family history of malignant neoplasm of digestive organs; Z80.3 Family history of malignant neoplasm of breast; Z82.0 Family history of epilepsy and other diseases of the nervous system; Z82.3 Family history of stroke; Z82.49 Family history of ischemic heart disease and other diseases of the circulatory system; Z82.5 Family history of asthma and other chronic lower respiratory diseases; Z87.440 Personal history of urinary (tract) infections; Z90.49 Acquired absence of other specified parts of digestive tract; Z83.3 Family history of diabetes mellitus
CPT/HCPCS: 36415; 43262; 43264; 71045; 74177; 74330; 76705; 80048; 80053; 80061; 80074; 80076; 81001; 82105; 82140; 82378; 82550; 82948; 83690; 83735; 84100; 84145; 84484; 85025; 85610; 85730; 86316; 87040; 87077; 87088; 87186; 93005; 99291; A4606; C1769; C9113; G0378; J0330; J2270; J2405; J2543; J2704; J3480; J3490; J7040; Q9967

== ENCOUNTER 2020-03-10 07:56 | Day surgery (SDC) | payer MEDICARE ==
[~2020-03-10] VITALS: Ht 175.3 cm; Wt 86.2 kg
[2020-03-10] VITALS (17 sets, daily range): BP systolic 114–150; BP diastolic 70–84
[~2020-03-10 07:56] MED LIST changes: +LEVO500T2 PO; +METR500T PO; -NITR0.4T50 SL; -TICA90TA PO
[2020-03-10] MEDS ORDERED: SODIUM CHLORIDE 0.9% 1000ML 1,000 ML IV ONE (10:22)
[2020-03-10] MEDS ORDERED: INDOMETHACIN 50 MG SUPP.RECT RC SCH (10:45)
[2020-03-10] MEDS ORDERED: IOHEXOL-350 50ML VIAL IV ONE (11:16)
[2020-03-10] MEDS ORDERED: MIDAZOLAM HCL 1 MG/ML 2ML VIAL ONE (12:08)
[2020-03-10] MEDS ORDERED: FENTANYL CITRATE PF 50 MCG/1 ML 2ML VIAL ONE (12:08)
[2020-03-10] MEDS ORDERED: PROPOFOL 10 MG/ML 20ML VIAL IV ONE (12:08)
[2020-03-10] MEDS ORDERED: SUCCINYLCHOLINE 200MG/10ML SYR ONE (12:08)
--- NOTE | 2020-03-10 14:00 | NUR ---
Update Patient assisted with his own supplies for self-catheterization, done with a 12fr catheter; 350cc of tea colored urine removed. Addendum: 03/10/20 at 1539 by MARGARITA BARNES RN RN Amended: Links added.
== END 2020-03-10 15:00 | disposition home or self-care (01) ==
LOC: ENDO 07:56 → DAH 07:56 → ENDO 15:00
PROVIDERS: ATTEND Internal Medicine Gastroenterology
DX: R94.5 Abnormal results of liver function studies (principal); K80.50 Calculus of bile duct without cholangitis or cholecystitis without obstruction; K83.8 Other specified diseases of biliary tract; I10 Essential (primary) hypertension; E78.5 Hyperlipidemia, unspecified; E03.9 Hypothyroidism, unspecified; M19.90 Unspecified osteoarthritis, unspecified site; I25.10 Atherosclerotic heart disease of native coronary artery without angina pectoris; Z79.82 Long term (current) use of aspirin; Z79.899 Other long term (current) drug therapy; Z90.49 Acquired absence of other specified parts of digestive tract; Z98.890 Other specified postprocedural states; Z86.010 Personal history of colon polyps; Z87.891 Personal history of nicotine dependence; Z72.89 Other problems related to lifestyle; Z82.49 Family history of ischemic heart disease and other diseases of the circulatory system; Z83.3 Family history of diabetes mellitus
CPT/HCPCS: 43261; 43262; 43264; 74328; A4215; A4221; A4222; A4223; A4606; A4657 ×2; A4663; C1769; C1773; J0330; J2250; J2704; J3010; J7030; Q9967; 74330

== ENCOUNTER 2020-04-20 06:34 | Inpatient (IN) | payer MEDICARE ==
[~2020-04-20] VITALS: Ht 175.3 cm; Wt 81.5 kg
[2020-04-20] MEDS ORDERED: DIPHENHYDRAMINE HCL 25 MG CAPSULE PO PRN (12:30)
[2020-04-20] MEDS ORDERED: LACTULOSE 20 GM/30 ML UDCUP PO PRN (12:30)
[2020-04-20] MEDS ORDERED: GUAIFENESIN-DM 200/20 MG 10 ML PO PRN (12:30)
[2020-04-20] MEDS ORDERED: DiphenhydrAMINE HCL 50 MG/ML VIAL IV PRN (12:30)
[2020-04-20] MEDS ORDERED: ACETAMINOPHEN 325 MG TAB PO PRN ×2 (12:30)
[2020-04-20] MEDS ORDERED: HYDRALAZINE HCL 20 MG/ML VIAL IV PRN (12:30)
[2020-04-20] MEDS ORDERED: NITROGLYCERIN 0.4 MG SL TAB SL PRN (12:30)
[2020-04-20] MEDS ORDERED: MAG HYDROX/AL HYDROX/SIMETH ES 30 ML SUSP UDCUP PO PRN (12:30)
[2020-04-20] MEDS ORDERED: SODIUM CHLORIDE 0.9% 1000ML 1,000 ML IV ONE (15:13)
--- NOTE | 2020-04-20 15:58 | NUR ---
DCP: HOME Sw spoke to pt's Marshall Cameron [phone]. Per spouse, pt is retired, independent of all ALDS, has no DME or in home care services. PCP is Dr Burgess and he uses mail orer or [facility] for rx medications. Spouse denies dc needs and plan is home at dc Addendum: 04/20/20 at 1600 by EMMANUELLE CONNOLLY SS Amended: Links added.
--- NOTE | 2020-04-20 18:36 | NUR ---
Received report from Thais Araujo RN in emergency room, admitting with biliary obstruction, acute pancreatitis, with complaints of nausea and abdominal pain between 4-5 on 0-10 pain scale, no active fevers. No covid testing performed. Per Thais, Dr. Andrew consulted and notified. Orders received for ERCP in AM 04/21/20, pending signature of consent. Continue with NS at 125 mL/hr, CLD until midnight, then NPO for procedure tomorrow.
[2020-04-20 19:30] VITALS: BP 138/81; PULSE 75; RESP 18; TEMP 98.2
[2020-04-20] MEDS: LACTATED RINGERS 1000ML 1,000 ML IV SCH ×2 (20:19→22:54)
[2020-04-20] MEDS: FAMOTIDINE/PF 20 MG/2 ML VIAL IV SCH (22:53)
--- NOTE | 2020-04-20 23:48 | NUR ---
[facility] ABOUT THE PROCEDURE OF ERCP TOMORROW 04/20/2020, SENT A COPY OF ORDER FOR PROCEDURE TO FAX 9980. PT NPO POST MIDNIGHT. PT DENIED ANY PAIN NOR NAUSEA NOR VOMITING. SECURED CONSENT, PATIENT ACKNOWLEDGED UNDERSTANDING OF RISK AND COMPLICATION.
[2020-04-21] VITALS (27 sets, daily range): BP systolic 112–155; BP diastolic 57–88; PULSE 53–78; RESP 12–20; TEMP 97–98.2
[2020-04-21] MEDS: LACTATED RINGERS 1000ML 1,000 ML IV SCH ×3 (03:38→22:13)
[2020-04-21] MEDS ORDERED: POTASSIUM CHLORIDE 10% ELIXIR 20 MEQ/15 ML UDCUP PO PRN (10:30)
[2020-04-21] MEDS ORDERED: POTASSIUM CHLORIDE 20MEQ/100ML 100 ML IV PRN ×2 (10:30)
[2020-04-21] MEDS ORDERED: LIDOCAINE HCL-MPF 1% 2ML VIAL IV PRN ×2 (10:30)
[2020-04-21] MEDS ORDERED: IOHEXOL-350 50ML VIAL IV ONE (10:40)
[2020-04-21] MEDS ORDERED: PROPOFOL 10 MG/ML 20ML VIAL IV ONE (11:01)
[2020-04-21] MEDS ORDERED: FENTANYL CITRATE PF 50 MCG/1 ML 2ML VIAL ONE ×2 (11:01→11:52)
[2020-04-21] MEDS ORDERED: MIDAZOLAM HCL 1 MG/ML 2ML VIAL ONE (11:02)
[2020-04-21] MEDS ORDERED: SUCCINYLCHOLINE 200MG/10ML SYR ONE (11:02)
[2020-04-21] MEDS: INDOMETHACIN 50 MG SUPP.RECT RC SCH ×3 (11:30→14:44)
[2020-04-21] MEDS: FAMOTIDINE/PF 20 MG/2 ML VIAL IV SCH ×2 (13:50→22:13)
[2020-04-21] MEDS: ZOSYN 3.375GM+NS 50ML 50 ML IV SCH ×2 (13:50→22:13)
[2020-04-21] MEDS: ENOXAPARIN SODIUM 40 MG/0.4 ML SYRINGE SQ SCH (13:52)
[2020-04-21] MEDS: ONDANSETRON HCL 4 MG/2 ML VIAL IV PRN (14:17)
--- NOTE | 2020-04-21 19:36 | NUR ---
DISPO EXPECT HOME AFTER INTERVENTION, PREVIOUSLY INDEPENDENT, BETTE TO FOLLOW Addendum: 04/21/20 at 1937 by ROYAL BRADSHAW RN CM Amended: Links added.
[2020-04-21] MEDS: PHENAZOPYRIDINE HCL 200 MG TABLET PO SCH (22:13)
[2020-04-22] MEDS: POTASSIUM CHLORIDE 20 MEQ ERTAB PO PRN ×4 (00:54→12:46)
[2020-04-22 03:48] VITALS: BP 111/67; PULSE 53; RESP 17; TEMP 98.3
[2020-04-22] MEDS: LACTATED RINGERS 1000ML 1,000 ML IV SCH ×3 (04:19→16:07)
[2020-04-22] MEDS: ZOSYN 3.375GM+NS 50ML 50 ML IV SCH ×3 (04:41→20:27)
[2020-04-22] MEDS: PHENAZOPYRIDINE HCL 200 MG TABLET PO SCH ×3 (08:31→20:27)
[2020-04-22] MEDS: FAMOTIDINE/PF 20 MG/2 ML VIAL IV SCH ×2 (08:31→20:27)
[2020-04-22] MEDS: ENOXAPARIN SODIUM 40 MG/0.4 ML SYRINGE SQ SCH (08:32)
[2020-04-22 09:54] VITALS: BP 158/86; PULSE 69; RESP 20; TEMP 97.9
[2020-04-22 12:15] VITALS: BP 139/78; PULSE 62; RESP 18; TEMP 98.1
[2020-04-22] MEDS ORDERED: ACETAMINOPHEN-CODEINE 300/30MG TAB PO PRN (13:00)
[2020-04-22 17:06] VITALS: BP 107/74; PULSE 55; RESP 18; TEMP 97.7
[2020-04-22 19:00] VITALS: BP 146/81; PULSE 60; RESP 17; TEMP 97.9
--- NOTE | 2020-04-22 19:20 | NUR ---
PIV SITE PAIN PT REPORTS PAIN FROM THE PIV SITE ON THE LEFT AC. DC LEFT AC PIV: CATHETER INTACT, NO REDNESS AT INSERTION SITE. PLACED A 20 G TO THE RIGHT FOREARM. PT TORSTEN PIV INSERTION WELL. NOTED BLOOD FLASH BACK AND FLUSHES WELL. SECURED WITH TEGADERM AND TAPE. IV INFUSION RUNNING.
[2020-04-22] MEDS: CARVEDILOL 6.25 MG TABLET PO SCH (20:27)
[2020-04-22] MEDS: ATORVASTATIN CALCIUM 40 MG TABLET PO SCH (20:28)
[2020-04-22 23:43] VITALS: BP 135/77; PULSE 64; RESP 17; TEMP 98.1
[2020-04-23] VITALS (14 sets, daily range): BP systolic 123–188; BP diastolic 64–86; PULSE 57–99; RESP 17–20; TEMP 97.5–98
[2020-04-23] MEDS: LACTATED RINGERS 1000ML 1,000 ML IV SCH ×2 (03:54→14:02)
[2020-04-23] MEDS: ZOSYN 3.375GM+NS 50ML 50 ML IV SCH (03:54)
[2020-04-23] MEDS: POTASSIUM CHLORIDE 20 MEQ ERTAB PO PRN (06:03)
[2020-04-23] MEDS ORDERED: LEVOTHYROXINE 100 MCG TABLET ONE (06:06)
[2020-04-23] MEDS: LEVOTHYROXINE 100 MCG TABLET PO SCH (06:08)
[2020-04-23] MEDS: AMLODIPINE BESYLATE 5 MG TAB PO SCH (10:36)
[2020-04-23] MEDS: ASPIRIN 81MG TAB.CHEW PO SCH (10:36)
[2020-04-23] MEDS: CARVEDILOL 6.25 MG TABLET PO SCH ×2 (10:36→21:28)
[2020-04-23] MEDS: FAMOTIDINE/PF 20 MG/2 ML VIAL IV SCH ×2 (10:37→21:28)
[2020-04-23] MEDS ORDERED: BENAZEPRIL HCL 10 MG TABLET PO ONE (10:40)
[2020-04-23] MEDS: BENAZEPRIL HCL 10 MG TABLET PO SCH (10:41)
[2020-04-23] MEDS: PHENAZOPYRIDINE HCL 200 MG TABLET PO SCH ×3 (10:41→21:28)
--- NOTE | 2020-04-23 11:46 | NUR ---
NOTIFIED DR. BISHOP REGARDING RECONSULT BERNIE MADE AWARE AND INFORMED TO NOTIFY OFFICE, VERBALIZED UNDERSTANDING.
[2020-04-23] MEDS: METRONIDAZOLE 500MG/100ML BAG 100 ML IV SCH ×2 (14:02→21:27)
[2020-04-23] MEDS: ATORVASTATIN CALCIUM 40 MG TABLET PO SCH (21:28)
[2020-04-23] MEDS: CEFTRIAXONE SODIUM 1 GM IVP SCH (21:28)
--- NOTE | 2020-04-23 21:30 | NUR ---
MEDS SHIFT ASSESSMENT DONE, PLEASE REFER TO CHART. DUE MEDS ADMINISTERED, TOLERATED WELL. INSTRUCTED TO BE NPO POST MN, PT VERBALIZES UNDERSTANDING. CALL LIGHT WITHIN REACH. WILL MONITOR PT. Addendum: 04/24/20 at 0831 by AYE CRAIG RN RN Amended: Links added.
[2020-04-24] VITALS (31 sets, daily range): BP systolic 108–161; BP diastolic 57–92; PULSE 50–97; RESP 13–20; TEMP 97.5–98.4
--- NOTE | 2020-04-24 02:00 | NUR ---
ROUNDS PT FAIRLY ASLEEP WITH RESPIRATIONS EVEN AND UNLABORED. NO NOTED DISTRESS. KEPT UNDISTURBED FOR NOW. WILL MONITOR PT. CALL LIGHT WITHIN REACH.
[2020-04-24] MEDS: LACTATED RINGERS 1000ML 1,000 ML IV SCH ×2 (03:50→09:20)
[2020-04-24] MEDS: METRONIDAZOLE 500MG/100ML BAG 100 ML IV SCH ×3 (05:17→20:48)
--- NOTE | 2020-04-24 05:30 | NUR ---
AWAKENED PT AWAKENED FOR HIM TO SHOWER BUT PT ASKS FOR 30 MORE MINUTES TO SLEEP. PCP MADE AWARE. KEPT NPO FOR PROCEDURE.
[2020-04-24] MEDS: LEVOTHYROXINE 100 MCG TABLET PO SCH (06:11)
--- NOTE | 2020-04-24 06:20 | NUR ---
SHOWER PT ALREADY AWAKE AND SALINE LOCKED FOR HIS SHOWER. PCP IN TO ASSIST PT. FOR MORE CARE.
[2020-04-24] MEDS: FAMOTIDINE/PF 20 MG/2 ML VIAL IV SCH ×2 (08:58→20:48)
[2020-04-24] MEDS: CEFTRIAXONE SODIUM 1 GM IVP SCH ×2 (08:58→20:48)
[2020-04-24] MEDS: ASPIRIN 81MG TAB.CHEW PO SCH (09:00)
[2020-04-24] MEDS: AMLODIPINE BESYLATE 5 MG TAB PO SCH (09:00)
[2020-04-24] MEDS: PHENAZOPYRIDINE HCL 200 MG TABLET PO SCH ×3 (09:00→20:48)
[2020-04-24] MEDS: CARVEDILOL 6.25 MG TABLET PO SCH ×2 (09:01→20:49)
[2020-04-24] MEDS ORDERED: MAGNESIUM 2GM PREMIX 50ML 50 ML IV SCH (09:15)
--- NOTE | 2020-04-24 09:15 | NUR ---
DR. THOMPSON PAGED RE; K, MAG, LFTS AND LIPASE PENDING TO ORDER. ORDERS ENTERED.
[2020-04-24] MEDS ORDERED: MAGNESIUM 2GM PREMIX 50ML 50 ML IV ONE (09:17)
[2020-04-24] MEDS ORDERED: IOHEXOL-350 50ML VIAL IV ONE (11:12)
[2020-04-24] MEDS: BENAZEPRIL HCL 10 MG TABLET PO SCH (12:00)
[2020-04-24] MEDS ORDERED: SUCCINYLCHOLINE 200MG/10ML SYR ONE (12:18)
[2020-04-24] MEDS ORDERED: PROPOFOL 10 MG/ML 20ML VIAL IV ONE ×2 (12:18)
[2020-04-24] MEDS ORDERED: INDOMETHACIN 50 MG SUPP.RECT RC SCH (12:30)
[2020-04-24] MEDS ORDERED: MEPERIDINE-PF 25 MG/ML SYG ONE (13:38)
[2020-04-24] MEDS ORDERED: MORPHINE SULFATE 2 MG/ML 1ML SYG ONE (13:58)
[2020-04-24] MEDS: ONDANSETRON HCL 4 MG/2 ML VIAL IV PRN (14:04)
--- NOTE | 2020-04-24 14:30 | NUR ---
PATIENT BACK FROM GI LAB S/P ERCP; AAOX3, IV INTACT NO BLEEDING.
--- NOTE | 2020-04-24 14:30 | NUR ---
DR. THOMPSON AWARE OF HR 50'S STATES OKAY, CONTINUE TO MONITOR COULD BE FROM ANESTHESIA.
--- NOTE | 2020-04-24 19:20 | NUR ---
SHOWER PT ASSISTED BY PCP TO SHOWER AT THIS TIME. REPORT RECEIVED FROM AM SHIFT. Addendum: 04/25/20 at 0248 by AYE CRAIG RN RN Amended: Links added.
[2020-04-24] MEDS: ATORVASTATIN CALCIUM 40 MG TABLET PO SCH (20:48)
[2020-04-24] MEDS: POTASSIUM CHLORIDE 20 MEQ ERTAB PO PRN (20:49)
--- NOTE | 2020-04-24 20:50 | NUR ---
MEDS SHIFT ASSESSMENT DONE, PLEASE REFER TO CHART. PT VERBALIZES ABDOMINAL DISCOMFORT. NO NAUSEA REPORTED. DUE MEDS ADMINISTERED, TYLENOL #3 GIVEN FOR PAINS. PT TOLERATED MEDS WELL. KEPT RESTED AND COMFORTABLE IN BED. WILL RE-ASSESS PT. Addendum: 04/25/20 at 0257 by AYE CRAIG RN RN Amended: Links added.
--- NOTE | 2020-04-25 02:00 | NUR ---
ROUNDS PT RESTING WELL, FAIRLY ASLEEP. WITH RESPIRATIONS EVEN AND UNLABORED. NO NOTED DISTRESS. KEPT UNDISTURBED FOR NOW. WILL MONITOR PT. CALL LIGHT WITHIN REACH.
[2020-04-25 04:00] VITALS: BP 131/71; PULSE 57; RESP 17; TEMP 98
[2020-04-25] MEDS: METRONIDAZOLE 500MG/100ML BAG 100 ML IV SCH ×2 (04:54→13:26)
[2020-04-25] MEDS: LACTATED RINGERS 1000ML 1,000 ML IV SCH (04:55)
--- NOTE | 2020-04-25 04:55 | NUR ---
MEDS PT ALREADY AWAKE. NO CONCERNS VERBALIZED. NO DISTRESS NOTED. NEW BAG IVF AND DUE IV MEDS HUNG. ELECTRONIC HEAT SEAL OPERATOR IN TO DRAW BLOOD. KEPT COMFORTABLE IN BED. FOR MORE CARE.
[2020-04-25] MEDS: LEVOTHYROXINE 100 MCG TABLET PO SCH (06:35)
[2020-04-25 08:00] VITALS: BP 123/60; PULSE 61; RESP 16; TEMP 98.1
[2020-04-25] MEDS: ASPIRIN 81MG TAB.CHEW PO SCH (09:00)
[2020-04-25] MEDS: CARVEDILOL 6.25 MG TABLET PO SCH (09:00)
[2020-04-25] MEDS: FAMOTIDINE/PF 20 MG/2 ML VIAL IV SCH (10:09)
[2020-04-25] MEDS: AMLODIPINE BESYLATE 5 MG TAB PO SCH (10:09)
[2020-04-25] MEDS: PHENAZOPYRIDINE HCL 200 MG TABLET PO SCH ×2 (10:09→13:32)
[2020-04-25] MEDS: CEFTRIAXONE SODIUM 1 GM IVP SCH (10:11)
[2020-04-25 11:00] VITALS: BP 167/73; PULSE 60; RESP 18; TEMP 98.4
--- NOTE | 2020-04-25 11:00 | NUR ---
REPORT RECEIVED FROM SURAJ JARQUIN AND PATIENT CARE TRANSFERED AT THIS TIME.
--- NOTE | 2020-04-25 14:00 | NUR ---
DR. DARIUS MARCUM AND LAILA DE LA ROSA NP DISCHARGE PATIENT ON ANTIBIOTICS. PATIENT IS STABLE AND HAS BEEN TOLERATING DIET AND ACTIVITY WELL.
[2020-04-25] MEDS: BENAZEPRIL HCL 10 MG TABLET PO SCH (14:08)
--- NOTE | 2020-04-25 16:00 | NUR ---
PATIENT HAD PIV REMOVED AND IV SITE WNL. PATIENT WANTED TO SHOWER BEFORE DISCHARGE SO HE SHOWERED AND TOLERATED ACTIVITY WELL.
--- NOTE | 2020-04-25 16:45 | NUR ---
PATIENT WAS GIVEN DISCHARGE INSTRUCTIONS AND VERBALIZED UNDERSTANDING INSTRUCTIONS GIVEN. SCRIPT FOR KEFLEX AND FLAGYL GIVEN AND INSTRUCTED ON DOSAGE AND FREQUENCY. PATIENT STABLE AND IS EXCITED TO BE GOING HOME.
--- NOTE | 2020-04-25 17:10 | NUR ---
PATIENT WAS TAKEN VIA W/C TO FAMILY VEHICLE AND WAS DISCHARGED IN STABLE CONDITION. PATIENT DENIES PAIN.
== END 2020-04-25 17:09 | disposition home or self-care (01) | DRG 444 ==
LOC: EDH 06:34 → EDHIP 12:19 → 3BH 19:04
PROVIDERS: ADMIT Family Medicine; ATTEND Family Medicine
PROC: 0FBC8ZX Excision of Ampulla of Vater, Via Natural or Artificial Opening Endoscopic, Diagnostic (ICD-10-PCS; 2020-04-21)
PROC: 0FC98ZZ Extirpation of Matter from Common Bile Duct, Via Natural or Artificial Opening Endoscopic (ICD-10-PCS; 2020-04-21)
PROC: BF101ZZ Fluoroscopy of Bile Ducts using Low Osmolar Contrast (ICD-10-PCS; 2020-04-21)
PROC: 0FC98ZZ Extirpation of Matter from Common Bile Duct, Via Natural or Artificial Opening Endoscopic (ICD-10-PCS; principal; 2020-04-24)
PROC: BF101ZZ Fluoroscopy of Bile Ducts using Low Osmolar Contrast (ICD-10-PCS; 2020-04-24)
PROC: 0F798DZ Dilation of Common Bile Duct with Intraluminal Device, Via Natural or Artificial Opening Endoscopic (ICD-10-PCS; 2020-04-24)
PROC: 0FB98ZX Excision of Common Bile Duct, Via Natural or Artificial Opening Endoscopic, Diagnostic (ICD-10-PCS; 2020-04-24)
DX: K80.31 Calculus of bile duct with cholangitis, unspecified, with obstruction (principal); K85.90 Acute pancreatitis without necrosis or infection, unspecified; E11.9 Type 2 diabetes mellitus without complications; K83.8 Other specified diseases of biliary tract; I10 Essential (primary) hypertension; I25.10 Atherosclerotic heart disease of native coronary artery without angina pectoris; Z95.5 Presence of coronary angioplasty implant and graft; Z90.49 Acquired absence of other specified parts of digestive tract; Z83.3 Family history of diabetes mellitus; Z82.5 Family history of asthma and other chronic lower respiratory diseases; Z82.3 Family history of stroke; Z82.49 Family history of ischemic heart disease and other diseases of the circulatory system; Z82.0 Family history of epilepsy and other diseases of the nervous system; Z80.3 Family history of malignant neoplasm of breast; Z80.0 Family history of malignant neoplasm of digestive organs; Q05.9 Spina bifida, unspecified

== ENCOUNTER 2020-08-10 03:41 | Emergency (ER) | payer MEDICARE ==
[~2020-08-10 03:41] MED LIST changes: +AMLO-257 PO; -AMLO5TAB9 PO; -ASPI-1181 PO; +CARV6.25 PO; +CEPH500C2 PO; -LEVO500T2 PO; -METO25 PO; +METR-172 PO; -METR500T PO
[2020-08-10 04:17] LABS: BASOPHILS % (AUTO) 0.3 % (0.0-5.0); EOSINOPHILS % (AUTO) 1.2 % (0.0-8.0); HEMATOCRIT 29.9 % (42-54); LYMPHOCYTES % (AUTO) 13.6 % (21.0-51.0); MEAN CORPUSCULAR HEMOGLOBIN 29.7 pg (27.0-33.0); MEAN CORPUSCULAR HGB CONC 33.1 g/dL (32.0-36.0); MEAN CORPUSCULAR VOLUME 89.8 fL (79-99); MONOCYTES % (AUTO) 0.3 % (3.0-13.0); NEUTROPHILS % (AUTO) 84.1 % (40.0-77.0); PLATELET COUNT (AUTO) 225 K/uL (130-400); RED BLOOD CELL COUNT(AUTO) 3.33 MIL/uL (4.50-6.20); RED CELL DISTRIBUTION WIDTH 13.8 % (11.0-15.5)
[2020-08-10 04:18] LABS: APPEARANCE,URINE Cloudy (CLEAR); BILIRUBIN,URINE Small (NEGATIVE); COLOR,URINE Dark Yellow (YELLOW); GLUCOSE, URINE (UA) Negative (NEGATIVE); KETONES,URINE 15 mg/dL (NEGATIVE); LEUKOCYTE ESTERASE ,URINE Large (NEGATIVE); NITRATE,URINE Positive (NEGATIVE); OCCULT BLOOD,URINE Negative (NEGATIVE); PH,URINE 7.5 (5.0-8.0); PROTEIN,URINE Negative (NEGATIVE)
[2020-08-10 04:24] LABS: BACTERIA,URINE Many /HPF (None Seen); MUCUS,URINE Rare LPF (None Seen); RBC,URINE None Seen /HPF (0-1); SQUAMOUS EPITHELIAL CELL,UR Few /HPF (0-2)
[2020-08-10 04:25] LABS: CREATININE 0.7 mg/dL (0.5-1.5); POTASSIUM 3.5 mmol/L (3.5-5.1)
[2020-08-10] MEDS ORDERED: ONDANSETRON HCL 4 MG/2 ML VIAL ONE (04:25)
[2020-08-10] MEDS ORDERED: MORPHINE SULFATE 4 MG/1ML SYG ONE (04:25)
[2020-08-10] MEDS ORDERED: SODIUM CHLORIDE 0.9% 1000ML 1,000 ML IV ONE (04:26)
[2020-08-10 04:41] LABS: ALBUMIN 2.5 g/dL (3.5-5.0); BILIRUBIN,DIRECT 0.3 mg/dL (0.0-0.3); BILIRUBIN,TOTAL 0.6 mg/dL (0.2-1.0); TOTAL PROTEIN, SERUM 5.8 g/dL (6.0-8.3)
[2020-08-10] MEDS ORDERED: CEFTRIAXONE SODIUM 1 GM ONE (06:04)
[2020-08-10] MEDS ORDERED: SODIUM CHLORIDE 0.9% 100 ML IV ONE (06:04)
[2020-08-10] MEDS ORDERED: PHENAZOPYRIDINE HCL 200 MG TABLET ONE (06:10)
[2020-08-10] MEDS ORDERED: AMOXICILLIN/POTASSIUM CLAV 500-125 TABLET PO ONE (07:14)
== END 2020-08-10 07:24 | disposition home or self-care (01) ==
LOC: EDH 03:41
DX: N30.00 Acute cystitis without hematuria (principal); N31.2 Flaccid neuropathic bladder, not elsewhere classified; Q05.9 Spina bifida, unspecified; M19.90 Unspecified osteoarthritis, unspecified site; E03.9 Hypothyroidism, unspecified; E78.00 Pure hypercholesterolemia, unspecified; I25.2 Old myocardial infarction; E07.9 Disorder of thyroid, unspecified; Z87.891 Personal history of nicotine dependence
CPT/HCPCS: 36415; 71045; 80048; 80076; 81001; 83605; 83690; 83880; 85025; 87040 ×2; 87077; 87088; 87186; 96361; 96374; 96375; 99284; J0696; J2270; J2405; J7030

== ENCOUNTER → 2020-10-22 | Outpatient (CLI) | payer MEDICARE ==
[~2020-10-22] MED LIST changes: +IOHEXOL-350 50ML VIAL IV ONE
== END | disposition home or self-care (01) ==
LOC: RAH 07:59
PROVIDERS: ATTEND Internal Medicine
DX: C24.1 Malignant neoplasm of ampulla of Vater (principal); K59.00 Constipation, unspecified; Z90.411 Acquired partial absence of pancreas; Z90.49 Acquired absence of other specified parts of digestive tract
CPT/HCPCS: 74178; Q9967

== ENCOUNTER → 2021-01-20 | Outpatient (CLI) | payer MEDICARE ==
[~2021-01-20] MED LIST changes: -GEMF600T5 PO; +GEMF600T89 PO; +IOHEXOL 350 MG/ML 100ML INFUS..BTL IV ONE; -IOHEXOL-350 50ML VIAL IV ONE
== END | disposition home or self-care (01) ==
LOC: RAH 08:00
PROVIDERS: ATTEND Internal Medicine Medical Oncology
DX: C24.1 Malignant neoplasm of ampulla of Vater (principal); M47.816 Spondylosis without myelopathy or radiculopathy, lumbar region; M51.36 Other intervertebral disc degeneration, lumbar region; Z90.49 Acquired absence of other specified parts of digestive tract
CPT/HCPCS: 74178; Q9967

== ENCOUNTER 2021-01-25 18:45 | Emergency (ER) | payer MEDICARE ==
[~2021-01-25 18:45] MED LIST changes: +BENA-8 PO; -BENA20TA10 PO; -IOHEXOL 350 MG/ML 100ML INFUS..BTL IV ONE
[2021-01-25 20:07] LABS: BASOPHILS % (AUTO) 0.9 % (0.0-5.0); EOSINOPHILS % (AUTO) 1.2 % (0.0-8.0); HEMATOCRIT 24.7 % (42-54); LYMPHOCYTES % (AUTO) 21.9 % (21.0-51.0); MEAN CORPUSCULAR HEMOGLOBIN 29.9 pg (27.0-33.0); MEAN CORPUSCULAR HGB CONC 31.6 g/dL (32.0-36.0); MEAN CORPUSCULAR VOLUME 94.6 fL (79-99); MONOCYTES % (AUTO) 14.7 % (3.0-13.0); NEUTROPHILS % (AUTO) 61.1 % (40.0-77.0); PLATELET COUNT (AUTO) 586 K/uL (130-400); RED BLOOD CELL COUNT(AUTO) 2.61 MIL/uL (4.50-6.20); RED CELL DISTRIBUTION WIDTH 15.8 % (11.0-15.5); WHITE BLOOD COUNT (AUTO) 5.8 K/uL (4.8-10.8)
[2021-01-25 20:17] LABS: CREATININE 0.7 mg/dL (0.5-1.5); POTASSIUM 3.5 mmol/L (3.5-5.1)
[2021-01-25 20:19] LABS: INR 1.17 (0.85-1.15); PROTHROMBIN TIME 12.6 SEC (9.6-11.6)
[2021-01-25 20:20] LABS: PARTIAL THROMBOPLASTIN TIME 28.6 SEC (26.3-35.5)
[2021-01-25 20:24] LABS: ALBUMIN 2.3 g/dL (3.5-5.0); BILIRUBIN,TOTAL 0.2 mg/dL (0.2-1.0)
[2021-01-25 21:01] LABS: APPEARANCE,URINE Clear (CLEAR); BILIRUBIN,URINE Negative (NEGATIVE); COLOR,URINE Dark Yellow (YELLOW); GLUCOSE, URINE (UA) Negative (NEGATIVE); KETONES,URINE Trace mg/dL (NEGATIVE); LEUKOCYTE ESTERASE ,URINE Trace (NEGATIVE); NITRATE,URINE Negative (NEGATIVE); OCCULT BLOOD,URINE Negative (NEGATIVE); PH,URINE 5.5 (5.0-8.0); PROTEIN,URINE POS 1+ mg/dL (NEGATIVE)
[2021-01-25 21:11] LABS: BACTERIA,URINE Rare /HPF (None Seen); MUCUS,URINE Few LPF (None Seen); SQUAMOUS EPITHELIAL CELL,UR Rare /HPF (0-2)
== END 2021-01-25 22:23 | disposition home or self-care (01) ==
LOC: EDH 18:45
DX: R10.84 Generalized abdominal pain (principal); R19.5 Other fecal abnormalities; M19.90 Unspecified osteoarthritis, unspecified site; I10 Essential (primary) hypertension; E03.9 Hypothyroidism, unspecified; E78.00 Pure hypercholesterolemia, unspecified; E11.65 Type 2 diabetes mellitus with hyperglycemia; I25.2 Old myocardial infarction; Z87.891 Personal history of nicotine dependence
CPT/HCPCS: 36415; 80053; 81001; 83690; 85025; 85610; 85730; 96360; 99283; J7030

== ENCOUNTER → 2021-04-23 | Outpatient (CLI) | payer MEDICARE ==
[~2021-04-23] MED LIST changes: -BENA-8 PO; +BENA20TA10 PO; +IOHEXOL-350 75 ML VIAL IV ONE
== END | disposition home or self-care (01) ==
LOC: RAH 07:35
PROVIDERS: ATTEND Internal Medicine Medical Oncology
DX: C24.1 Malignant neoplasm of ampulla of Vater (principal); K59.00 Constipation, unspecified; Z90.411 Acquired partial absence of pancreas
CPT/HCPCS: 74177; Q9967

== ENCOUNTER 2021-05-11 07:39 | Day surgery (SDC) | payer MEDICARE ==
[~2021-05-11] VITALS: Ht 175.3 cm; Wt 65.6 kg
[~2021-05-11 07:39] MED LIST changes: +0.9%NACL 1000ML 1,000 ML IV ONE; -ATOR20TA65 PO; -CEPH500C2 PO; -GEMF600T89 PO; -IOHEXOL-350 75 ML VIAL IV ONE; -METR-172 PO
[2021-05-11 09:00] VITALS: BP 134/71
[2021-05-11 10:31] LABS: HEMATOCRIT 25.8 % (42-54); MEAN CORPUSCULAR HEMOGLOBIN 24.4 pg (27.0-33.0); MEAN CORPUSCULAR HGB CONC 29.5 g/dL (32.0-36.0); PLATELET COUNT (AUTO) 274 K/uL (130-400); RED BLOOD CELL COUNT(AUTO) 3.11 MIL/uL (4.50-6.20); RED CELL DISTRIBUTION WIDTH 20.7 % (11.0-15.5); WHITE BLOOD COUNT (AUTO) 3.4 K/uL (4.8-10.8)
[2021-05-11 10:49] LABS: CREATININE 0.6 mg/dL (0.5-1.5); POTASSIUM 3.8 mmol/L (3.5-5.1)
[2021-05-11] MEDS ORDERED: PROPOFOL 10 MG/ML 20ML VIAL IV ONE (10:57)
[2021-05-11 11:20] VITALS: BP 120/73
[2021-05-11 11:25] VITALS: BP 126/80
[2021-05-11 11:30] VITALS: BP 136/79
[2021-05-12] MEDS ORDERED: AMYL1CAP61 PO (11:51)
[2021-05-12] MEDS ORDERED: ASPI-1197 PO (11:52)
== END 2021-05-11 12:20 | disposition home or self-care (01) ==
LOC: ENDO 07:39 → DAH 07:39 → ENDO 12:20
PROVIDERS: ATTEND Internal Medicine
DX: D50.9 Iron deficiency anemia, unspecified (principal); Z20.822 Contact with and (suspected) exposure to COVID-19; K31.89 Other diseases of stomach and duodenum; K86.81 Exocrine pancreatic insufficiency; I10 Essential (primary) hypertension; R06.9 Unspecified abnormalities of breathing; E03.9 Hypothyroidism, unspecified; M19.90 Unspecified osteoarthritis, unspecified site; I25.10 Atherosclerotic heart disease of native coronary artery without angina pectoris; Z79.899 Other long term (current) drug therapy; Z79.890 Hormone replacement therapy; Z90.89 Acquired absence of other organs; Z95.5 Presence of coronary angioplasty implant and graft; Z86.010 Personal history of colon polyps; Z80.0 Family history of malignant neoplasm of digestive organs; Z90.49 Acquired absence of other specified parts of digestive tract
CPT/HCPCS: 36415; 43239; 45378; 80048; 85027; 87635; 93005; A4215; A4221; A4222; A4223; A4606; A4620; A4657 ×2; A4663; C9803; J2704; J7030 ×2

== ENCOUNTER 2021-05-12 09:29 | Day surgery (SDC) | payer MEDICARE ==
[2021-05-12] VITALS (8 sets, daily range): BP systolic 129–148; BP diastolic 69–83
[~2021-05-12] VITALS: Ht 175.3 cm; Wt 65.6 kg
[~2021-05-12 09:29] MED LIST changes: -0.9%NACL 1000ML 1,000 ML IV ONE
[2021-05-12] MEDS ORDERED: AMYL1CAP61 PO (11:51)
[2021-05-12] MEDS ORDERED: ASPI-1197 PO (11:52)
[2021-05-12] MEDS ORDERED: 0.9%NACL 1000ML 1,000 ML IV ONE (11:56)
[2021-05-12] MEDS ORDERED: PROPOFOL 10 MG/ML 20ML VIAL IV ONE (12:19)
== END 2021-05-12 13:16 | disposition home or self-care (01) ==
LOC: DAH 09:29 → ENDO 09:29
PROVIDERS: ATTEND Internal Medicine
DX: D50.9 Iron deficiency anemia, unspecified (principal); Z20.822 Contact with and (suspected) exposure to COVID-19; K63.5 Polyp of colon; K57.30 Diverticulosis of large intestine without perforation or abscess without bleeding; R13.10 Dysphagia, unspecified; K86.81 Exocrine pancreatic insufficiency; K31.89 Other diseases of stomach and duodenum; I10 Essential (primary) hypertension; I25.10 Atherosclerotic heart disease of native coronary artery without angina pectoris; E03.9 Hypothyroidism, unspecified; M19.90 Unspecified osteoarthritis, unspecified site; Z90.49 Acquired absence of other specified parts of digestive tract; Z98.890 Other specified postprocedural states; Z90.89 Acquired absence of other organs; Z86.010 Personal history of colon polyps; Z85.07 Personal history of malignant neoplasm of pancreas; Z80.0 Family history of malignant neoplasm of digestive organs; Z79.899 Other long term (current) drug therapy
CPT/HCPCS: 45385; A4215; A4221; A4222; A4223; A4606; A4620; A4663; J2704; J7030 ×2

== ENCOUNTER 2023-04-10 08:55 | Inpatient (IN) | payer MEDICARE ==
[~2023-04-10] VITALS: Ht 175.3 cm; Wt 61.7 kg
[~2023-04-10 08:55] MED LIST changes: +AMYL1CAP61 PO; +ASPI-1197 PO; +BENA-8 PO; -BENA20TA10 PO; +BENZ-226 PO; +FINA1TAB13 PO; -FINA5TAB41 PO; +GUAI5SYR PO; -LEVO200T10 PO; +LIPA1CAP18 PO; +MECO10005 PO; -MELO-108 PO; +MELO5CAP3 PO; +TAMS-1 PO; -TAMS0.4C32 PO; +[UNRECOGNIZED DRUG - CODE] PO; +iron PO
[2023-04-10] MEDS ORDERED: MORPHINE 4 MG SYG IM ONE ×2 (09:30→11:30)
[2023-04-10] MEDS ORDERED: ONDANSETRON 4MG INJ IVP ONE (09:30)
[2023-04-10] MEDS ORDERED: 0.9%NACL 1000ML 1,000 ML IV ONE ×2 (09:30→11:30)
[2023-04-10 09:50] LABS: BASOPHILS % (AUTO) 1.2 % (0.0-5.0); EOSINOPHILS % (AUTO) 4.6 % (0.0-8.0); HEMATOCRIT 28.3 % (42-54); LYMPHOCYTES % (AUTO) 31.8 % (21.0-51.0); MEAN CORPUSCULAR HEMOGLOBIN 31.6 pg (27.0-33.0); MEAN CORPUSCULAR HGB CONC 32.5 g/dL (32.0-36.0); MEAN CORPUSCULAR VOLUME 97.3 fL (79-99); MONOCYTES % (AUTO) 6.9 % (3.0-13.0); NEUTROPHILS % (AUTO) 54.3 % (40.0-77.0); PLATELET COUNT (AUTO) 192 K/uL (130-400); RED BLOOD CELL COUNT(AUTO) 2.91 MIL/uL (4.50-6.20); RED CELL DISTRIBUTION WIDTH 13.6 % (11.0-15.5); WHITE BLOOD COUNT (AUTO) 1.7 K/uL (4.8-10.8)
[2023-04-10 09:59] LABS: INR 0.99 (0.85-1.15); PROTHROMBIN TIME 10.8 SEC (9.6-11.6)
[2023-04-10 10:01] LABS: PARTIAL THROMBOPLASTIN TIME 22.5 SEC (26.3-35.5)
[2023-04-10 10:07] LABS: ALBUMIN 2.7 g/dL (3.5-5.0); CREATININE 0.8 mg/dL (0.5-1.5); TOTAL PROTEIN, SERUM 5.4 g/dL (6.0-8.3)
[2023-04-10 10:14] LABS: APPEARANCE,URINE CLEAR (CLEAR); BILIRUBIN,URINE NEGATIVE (NEGATIVE); COLOR,URINE DARK-YELLOW (YELLOW); GLUCOSE, URINE (UA) TRACE mg/dL (NEGATIVE); KETONES,URINE NEGATIVE (NEGATIVE); LEUKOCYTE ESTERASE ,URINE 250 Leu/uL (NEGATIVE); NITRATE,URINE NEGATIVE (NEGATIVE); OCCULT BLOOD,URINE NEGATIVE (NEGATIVE); PROTEIN,URINE 70 mg/dL (NEGATIVE); UROBILINOGEN,URINE 0.2 mg/dL (0.2-1.0)
[2023-04-10 10:17] LABS: BACTERIA,URINE FEW /HPF (None Seen); MUCUS,URINE RARE LPF (None Seen); SQUAMOUS EPITHELIAL CELL,UR RARE /HPF (0-2); WBC,URINE TNTC /HPF (0-1)
[2023-04-10] MEDS ORDERED: CEFTRIAXONE 1G VIAL IVPB ONE (10:30)
[2023-04-10] MEDS ORDERED: IOHEXOL 350 MG/ML 100ML INFUS..BTL IV ONE (11:43)
[2023-04-10] MEDS ORDERED: MORPHINE 4 MG SYG IVP ONE (14:30)
[2023-04-10] MEDS ORDERED: HYDRALAZINE 20MG/ML VIAL IV PRN (16:00)
[2023-04-10] MEDS ORDERED: ONDANSETRON 4MG INJ IVP PRN (16:00)
[2023-04-10] MEDS: LACTATED RINGERS 1000ML 1,000 ML IV SCH (17:08)
[2023-04-10] MEDS: LEVOFLOXACIN 500 MG/D5W 100 ML 100 ML IV SCH (19:02)
[2023-04-10] MEDS: FAMOTIDINE 20MG VIAL IV SCH (21:12)
[2023-04-10] MEDS: METRONIDAZOLE 250MG/50ML 50 ML IV SCH (22:07)
[2023-04-11 01:48] VITALS: BP 153/94
[2023-04-11] MEDS: HYDROMORPHONE 0.5 MG SYG (0.5MG/0.5ML) IVP PRN ×4 (02:45→23:05)
[2023-04-11 04:00] VITALS: BP 155/91
[2023-04-11] MEDS ORDERED: MEPERIDINE-PF 25 MG/ML SYG ONE (04:17)
[2023-04-11] MEDS ORDERED: MEPERIDINE-PF 25 MG/ML SYG IVP ONE (04:30)
[2023-04-11] MEDS: LACTATED RINGERS 1000ML 1,000 ML IV SCH ×2 (05:20→18:40)
[2023-04-11] MEDS: METRONIDAZOLE 250MG/50ML 50 ML IV SCH ×3 (06:07→22:50)
[2023-04-11 07:40] VITALS: BP 137/91
[2023-04-11] MEDS: FAMOTIDINE 20MG VIAL IV SCH ×2 (08:50→21:22)
[2023-04-11] MEDS: ENOXAPARIN SODIUM 40 MG/0.4 ML SYRINGE SQ SCH (08:51)
[2023-04-11 11:30] VITALS: BP 140/86
[2023-04-11 15:52] VITALS: BP 114/72
[2023-04-11] MEDS: LEVOFLOXACIN 500 MG/D5W 100 ML 100 ML IV SCH (17:06)
[2023-04-11 20:00] VITALS: BP 109/65
[2023-04-12] VITALS: BP 117/76
[2023-04-12 03:59] LABS: BASOPHILS % (AUTO) 0.8 % (0.0-5.0); EOSINOPHILS % (AUTO) 1.2 % (0.0-8.0); HEMATOCRIT 22.1 % (42-54); LYMPHOCYTES % (AUTO) 28.3 % (21.0-51.0); MEAN CORPUSCULAR HEMOGLOBIN 31.9 pg (27.0-33.0); MEAN CORPUSCULAR VOLUME 96.5 fL (79-99); MONOCYTES % (AUTO) 11.2 % (3.0-13.0); NEUTROPHILS % (AUTO) 57.7 % (40.0-77.0); PLATELET COUNT (AUTO) 185 K/uL (130-400); RED BLOOD CELL COUNT(AUTO) 2.29 MIL/uL (4.50-6.20); RED CELL DISTRIBUTION WIDTH 13.4 % (11.0-15.5); WHITE BLOOD COUNT (AUTO) 2.5 K/uL (4.8-10.8)
[2023-04-12 04:00] VITALS: BP 121/58
[2023-04-12 04:25] LABS: ALBUMIN 2.1 g/dL (3.5-5.0); CREATININE 0.9 mg/dL (0.5-1.5); MAGNESIUM 1.5 mg/dL (1.80-2.40); TOTAL PROTEIN, SERUM 4.6 g/dL (6.0-8.3)
[2023-04-12 04:36] LABS: POTASSIUM 2.9 mmol/L (3.5-5.1)
[2023-04-12] MEDS: METRONIDAZOLE 250MG/50ML 50 ML IV SCH (04:54)
[2023-04-12] MEDS ORDERED: MAGNESIUM 2GM PREMIX 50ML 50 ML IV ONE (05:00)
[2023-04-12] MEDS ORDERED: POTASSIUM CHLORIDE 10% ELIXIR 20 MEQ/15 ML UDCUP PO ONE (05:00)
[2023-04-12] MEDS: HYDROMORPHONE 0.5 MG SYG (0.5MG/0.5ML) IVP PRN (05:48)
[2023-04-12 05:58] LABS: BAND NEUTROPHILS % (MANUAL) 3 % (0-2); BASOPHILS % (MANUAL) 1 % (0-2); EOSINOPHILS % (MANUAL) 1 % (1-6); LYMPHOCYTES % (MANUAL) 29 % (22-44); MAN.DIFF COMMENT-IMPRESSION MANUAL DIFFERENTIAL; MONOCYTES % (MANUAL) 6 % (2-9); REACTIVE LYMPHOCYTES 4 % (0-0); SEGMENTED NEUTROPHILS % 56 % (40-70)
[2023-04-12 08:00] VITALS: BP 121/75
[2023-04-12] MEDS: LACTATED RINGERS 1000ML 1,000 ML IV SCH (08:00)
[2023-04-12] MEDS: FAMOTIDINE 20MG VIAL IV SCH (09:00)
[2023-04-12] MEDS: ENOXAPARIN SODIUM 40 MG/0.4 ML SYRINGE SQ SCH (09:00)
[2023-04-12 11:35] VITALS: BP 111/71
[2023-04-12] MEDS ORDERED: COMPOUND IV MISC 1 EACH IVSOLN MISC PRN (12:00)
[2023-04-12] MEDS ORDERED: LEVO-70 PO (14:02)
[2023-04-12] MEDS ORDERED: ACET-2079 PO (14:02)
== END 2023-04-12 16:42 | disposition home or self-care (01) | DRG 808 ==
LOC: EDH 08:55 → EDHIP 15:28 → 4AH 04-11 01:36
PROVIDERS: ADMIT Internal Medicine; ATTEND Internal Medicine
DX: D70.3 Neutropenia due to infection (principal); E43 Unspecified severe protein-calorie malnutrition; K56.7 Ileus, unspecified; C24.1 Malignant neoplasm of ampulla of Vater; N39.0 Urinary tract infection, site not specified; C78.89 Secondary malignant neoplasm of other digestive organs; D61.810 Antineoplastic chemotherapy induced pancytopenia; Z20.822 Contact with and (suspected) exposure to COVID-19; K52.9 Noninfective gastroenteritis and colitis, unspecified; E03.9 Hypothyroidism, unspecified; I10 Essential (primary) hypertension; M19.90 Unspecified osteoarthritis, unspecified site; N31.9 Neuromuscular dysfunction of bladder, unspecified; N40.0 Benign prostatic hyperplasia without lower urinary tract symptoms; D64.81 Anemia due to antineoplastic chemotherapy; T45.1X5A Adverse effect of antineoplastic and immunosuppressive drugs, initial encounter; Z78.9 Other specified health status; Z79.1 Long term (current) use of non-steroidal anti-inflammatories (NSAID); Z79.82 Long term (current) use of aspirin; Z85.09 Personal history of malignant neoplasm of other digestive organs; Z90.411 Acquired partial absence of pancreas; Z92.21 Personal history of antineoplastic chemotherapy
CPT/HCPCS: 36415; 74177; 80053; 81001; 82550; 83605; 83735; 84484; 85025; 85610; 85730; 87040; 87088; 93005; G0378; J0696; J1170; J1650; J1956; J2175; J2270; J2405; J3475; J3490; J7030; Q9967

== ENCOUNTER → 2023-09-11 | Outpatient (CLI) | payer MEDICARE ==
[~2023-09-11] MED LIST changes: +ACET-2079 PO; +LEVO-70 PO
== END | disposition home or self-care (01) ==
LOC: SHCH 08:20
PROVIDERS: ATTEND Internal Medicine Cardiovascular Disease
DX: I11.9 Hypertensive heart disease without heart failure (principal); R94.31 Abnormal electrocardiogram [ECG] [EKG]; I21.4 Non-ST elevation (NSTEMI) myocardial infarction
CPT/HCPCS: 93306

== ENCOUNTER 2023-10-13 13:44 | Observation (INO) | payer MEDICARE ==
[~2023-10-13] VITALS: Ht 175.3 cm; Wt 63.5 kg
[2023-10-13 14:39] LABS: BASOPHILS # (AUTO) 0.03 K/uL (0.00-0.20); BASOPHILS % (AUTO) 0.4 % (0.0-5.0); EOSINOPHILS % (AUTO) 1.5 % (0.0-8.0); HEMATOCRIT 27.9 % (42-54); IMMATURE GRANULOCYTE ABSOLUTE 0.04 K/uL (0-1); LYMPHOCYTES # (AUTO) 1.3 K/uL (1.0-4.8); LYMPHOCYTES % (AUTO) 19.9 % (21.0-51.0); MEAN CORPUSCULAR HEMOGLOBIN 29.6 pg (27.0-33.0); MEAN CORPUSCULAR HGB CONC 31.9 g/dL (32.0-36.0); MEAN CORPUSCULAR VOLUME 92.7 fL (79-99); MONOCYTES # (AUTO) 0.8 K/uL (0.1-1.0); MONOCYTES % (AUTO) 11.9 % (3.0-13.0); NEUTROPHILS # (AUTO) 4.4 K/uL (1.8-7.7); NEUTROPHILS % (AUTO) 65.7 % (40.0-77.0); PLATELET COUNT (AUTO) 313 K/uL (130-400); RED BLOOD CELL COUNT(AUTO) 3.01 MIL/uL (4.50-6.20); RED CELL DISTRIBUTION WIDTH 14.7 % (11.0-15.5); WHITE BLOOD COUNT (AUTO) 6.8 K/uL (4.8-10.8)
[2023-10-13 14:59] LABS: CREATININE 0.9 mg/dL (0.5-1.5); POTASSIUM 3.6 mmol/L (3.5-5.1)
[2023-10-13 15:03] LABS: ALBUMIN 2.9 g/dL (3.5-5.0); BILIRUBIN,TOTAL 0.4 mg/dL (0.2-1.0); TOTAL PROTEIN, SERUM 6.6 g/dL (6.0-8.3)
[2023-10-13 16:07] LABS: BILIRUBIN,URINE NEGATIVE (NEGATIVE); COLOR,URINE DARK-YELLOW (YELLOW); GLUCOSE, URINE (UA) NEGATIVE (NEGATIVE); KETONES,URINE NEGATIVE (NEGATIVE); LEUKOCYTE ESTERASE ,URINE 500 Leu/uL (NEGATIVE); NITRATE,URINE NEGATIVE (NEGATIVE); OCCULT BLOOD,URINE MODERATE (NEGATIVE); PH,URINE 5.5 (5.0-8.0); PROTEIN,URINE 10 mg/dL (NEGATIVE); UROBILINOGEN,URINE 0.2 mg/dL (0.2-1.0)
[2023-10-13 16:09] LABS: ADD UA MICROSCOPIC YES; APPEARANCE,URINE HAZY (CLEAR)
[2023-10-13 16:11] LABS: BACTERIA,URINE RARE /HPF (None Seen); MUCUS,URINE RARE LPF (None Seen); SQUAMOUS EPITHELIAL CELL,UR RARE /HPF (0-2); WBC,URINE TNTC /HPF (0-1)
[2023-10-13] MEDS ORDERED: ONDANSETRON 4MG INJ IVP ONE (17:30)
[2023-10-13] MEDS ORDERED: MORPHINE 4 MG SYG IM ONE (17:30)
[2023-10-13] MEDS ORDERED: MORPHINE 4 MG SYG IVP ONE (18:00)
[2023-10-13] MEDS ORDERED: ZOSYN 3.375GM +NS 50ML IV ONE (18:30)
[2023-10-13] MEDS ORDERED: MORPHINE 2 MG SYG IV PRN (18:30)
[2023-10-13] MEDS ORDERED: ACETAMINOPHEN 325 MG TAB PO PRN ×2 (18:30)
[2023-10-13] MEDS: ZOSYN 3.375GM+NS 50ML 50 ML IV SCH (20:33)
[2023-10-13 21:00] VITALS: BP 120/70; PULSE 63; RESP 18; O2SAT 97
[2023-10-13] MEDS: LACTATED RINGERS 1000ML 1,000 ML IV SCH (22:17)
[2023-10-13] MEDS: MORPHINE 4 MG SYG IV PRN (22:24)
[2023-10-13] MEDS: ONDANSETRON 4MG INJ IV PRN (22:24)
[2023-10-13] MEDS ORDERED: LIPA1CAP18 PO (23:00)
[2023-10-13] MEDS ORDERED: ZOLP10TA2 PO (23:00)
[2023-10-13] MEDS: ZOLPIDEM TARTRATE 5 MG TAB PO PRN (23:23)
[2023-10-14] VITALS (8 sets, daily range): BP systolic 111–131; BP diastolic 63–75; PULSE 56–62; RESP 16–18; O2SAT 96–99
[2023-10-14] MEDS: ZOSYN 3.375GM+NS 50ML 50 ML IV SCH ×3 (04:52→20:09)
[2023-10-14 05:51] LABS: BASOPHILS # (AUTO) 0.03 K/uL (0.00-0.20); BASOPHILS % (AUTO) 0.7 % (0.0-5.0); EOSINOPHILS # (AUTO) 0.15 K/uL (0.00-0.70); EOSINOPHILS % (AUTO) 3.3 % (0.0-8.0); HEMATOCRIT 25.1 % (42-54); IMMATURE GRANULOCYTE ABSOLUTE 0.04 K/uL (0-1); LYMPHOCYTES # (AUTO) 1.2 K/uL (1.0-4.8); LYMPHOCYTES % (AUTO) 26.8 % (21.0-51.0); MEAN CORPUSCULAR HEMOGLOBIN 29.5 pg (27.0-33.0); MEAN CORPUSCULAR HGB CONC 31.5 g/dL (32.0-36.0); MEAN CORPUSCULAR VOLUME 93.7 fL (79-99); MONOCYTES # (AUTO) 0.6 K/uL (0.1-1.0); MONOCYTES % (AUTO) 13.8 % (3.0-13.0); NEUTROPHILS # (AUTO) 2.5 K/uL (1.8-7.7); NEUTROPHILS % (AUTO) 54.5 % (40.0-77.0); PLATELET COUNT (AUTO) 251 K/uL (130-400); RED BLOOD CELL COUNT(AUTO) 2.68 MIL/uL (4.50-6.20); RED CELL DISTRIBUTION WIDTH 14.8 % (11.0-15.5); WHITE BLOOD COUNT (AUTO) 4.6 K/uL (4.8-10.8)
[2023-10-14 06:32] LABS: CREATININE 0.8 mg/dL (0.5-1.5); MAGNESIUM 1.7 mg/dL (1.80-2.40); PHOSPHORUS 4.3 mg/dL (2.5-4.9); POTASSIUM 3.3 mmol/L (3.5-5.1); THYROID STIMULATING HORMONE 19.04 uIU/mL (0.36-3.74)
[2023-10-14] MEDS ORDERED: KCL 20 MEQ ERTAB PO ONE ×2 (08:38→11:20)
[2023-10-14] MEDS ORDERED: MAGNESIUM 2GM PREMIX 50ML 50 ML IV ONE (08:38)
[2023-10-14] MEDS: FAMOTIDINE 20MG TAB PO SCH (09:07)
[2023-10-14] MEDS: ENOXAPARIN SODIUM 40 MG/0.4 ML SYRINGE SQ SCH (09:08)
[2023-10-14] MEDS: LACTATED RINGERS 1000ML 1,000 ML IV SCH (09:15)
[2023-10-14] MEDS ORDERED: NON-FORMULARY MEDICATION 1 EACH (Zolpidem Tartrate (Ambien) 10 MG) PO PRN (12:30)
[2023-10-14] MEDS: ONDANSETRON 4MG INJ IV PRN (19:17)
[2023-10-14] MEDS: MORPHINE 4 MG SYG IV PRN (19:17)
[2023-10-14] MEDS: CARVEDILOL 6.25 MG TABLET PO SCH (20:10)
[2023-10-14] MEDS: ZOLPIDEM TARTRATE 5 MG TAB PO PRN (23:58)
[2023-10-15 01:40] VITALS: BP 144/61; PULSE 59; RESP 18
[2023-10-15 03:29] VITALS: BP 128/72; PULSE 61; RESP 16
[2023-10-15] MEDS: ZOSYN 3.375GM+NS 50ML 50 ML IV SCH (04:48)
[2023-10-15 05:29] LABS: BASOPHILS # (AUTO) 0.03 K/uL (0.00-0.20); BASOPHILS % (AUTO) 0.6 % (0.0-5.0); EOSINOPHILS # (AUTO) 0.19 K/uL (0.00-0.70); EOSINOPHILS % (AUTO) 3.8 % (0.0-8.0); HEMATOCRIT 25.2 % (42-54); IMMATURE GRANULOCYTE ABSOLUTE 0.03 K/uL (0-1); LYMPHOCYTES # (AUTO) 1.2 K/uL (1.0-4.8); LYMPHOCYTES % (AUTO) 23.2 % (21.0-51.0); MEAN CORPUSCULAR HEMOGLOBIN 29.3 pg (27.0-33.0); MEAN CORPUSCULAR HGB CONC 31.3 g/dL (32.0-36.0); MEAN CORPUSCULAR VOLUME 93.3 fL (79-99); MONOCYTES # (AUTO) 0.5 K/uL (0.1-1.0); MONOCYTES % (AUTO) 10.6 % (3.0-13.0); NEUTROPHILS # (AUTO) 3.1 K/uL (1.8-7.7); NEUTROPHILS % (AUTO) 61.2 % (40.0-77.0); PLATELET COUNT (AUTO) 264 K/uL (130-400); RED CELL DISTRIBUTION WIDTH 14.6 % (11.0-15.5)
[2023-10-15] MEDS: LACTATED RINGERS 1000ML 1,000 ML IV SCH (05:57)
[2023-10-15 06:01] LABS: ALBUMIN 2.3 g/dL (3.5-5.0); BILIRUBIN,TOTAL 0.3 mg/dL (0.2-1.0); CREATININE 0.9 mg/dL (0.5-1.5); POTASSIUM 3.7 mmol/L (3.5-5.1); TOTAL PROTEIN, SERUM 5.4 g/dL (6.0-8.3)
[2023-10-15 07:47] VITALS: BP 136/78; PULSE 60; RESP 18
[2023-10-15] MEDS: MORPHINE 4 MG SYG IV PRN (08:11)
[2023-10-15 08:30] VITALS: O2SAT 97
[2023-10-15] MEDS ORDERED: TAMSULOSIN HCL 0.4 MG CAP.ER.24H PO SCH (09:00)
[2023-10-15] MEDS ORDERED: MECOBALAMIN 1000 MCG PO SCH (09:00)
[2023-10-15] MEDS ORDERED: FUROSEMIDE 20 MG TABLET PO SCH (09:00)
[2023-10-15] MEDS ORDERED: NON-FORMULARY MEDICATION 1 EACH (Benazepril HCl 20 MG) PO SCH (09:00)
[2023-10-15] MEDS ORDERED: FINASTERIDE 0.5 MG PO SCH (09:00)
[2023-10-15] MEDS ORDERED: BENAZEPRIL HCL 10 MG TABLET PO SCH (09:00)
[2023-10-15] MEDS ORDERED: AMLODIPINE 5 MG TAB PO SCH (09:00)
[2023-10-15] MEDS ORDERED: ASPIRIN 81MG CHEW TAB PO SCH (09:00)
[2023-10-15] MEDS ORDERED: MELOXICAM 15 MG PO SCH (09:00)
[2023-10-15] MEDS ORDERED: TIROSINT 150 MCG PO SCH (09:00)
[2023-10-15] MEDS: FAMOTIDINE 20MG TAB PO SCH (09:37)
[2023-10-15] MEDS: CARVEDILOL 6.25 MG TABLET PO SCH (09:38)
[2023-10-15] MEDS: ENOXAPARIN SODIUM 40 MG/0.4 ML SYRINGE SQ SCH (09:44)
[2023-10-15 11:57] VITALS: BP 129/73; PULSE 57; RESP 18
[2023-10-15] MEDS ORDERED: CEPH500B PO (13:00)
== END 2023-10-15 15:40 | disposition home or self-care (01) ==
LOC: EDH 13:44 → EDHIP 18:24 → INTOOBSV 18:24 → 3BH 21:00
PROVIDERS: ADMIT Internal Medicine; ATTEND Internal Medicine
DX: N39.0 Urinary tract infection, site not specified (principal); E87.6 Hypokalemia; E83.42 Hypomagnesemia; R74.01 Elevation of levels of liver transaminase levels; R60.0 Localized edema; C78.00 Secondary malignant neoplasm of unspecified lung; C78.7 Secondary malignant neoplasm of liver and intrahepatic bile duct; N31.9 Neuromuscular dysfunction of bladder, unspecified; D64.9 Anemia, unspecified; E86.0 Dehydration; M19.90 Unspecified osteoarthritis, unspecified site; I10 Essential (primary) hypertension; E03.9 Hypothyroidism, unspecified; N40.0 Benign prostatic hyperplasia without lower urinary tract symptoms; N32.89 Other specified disorders of bladder; I25.2 Old myocardial infarction; Z98.890 Other specified postprocedural states; Z79.82 Long term (current) use of aspirin
CPT/HCPCS: 96376 ×3; 96361 ×2; 96365; 96375; 99285; 84484; 80053 ×2; 85025 ×3; 87040 ×2; 87088; 83605; 81001; 36415 ×3; 71045; 93005; 84145; 96372 ×2; 96366 ×2; 96367; 84443; 83735; 84100; 80048; 82948; J2405 ×3; J2270 ×5; J2543 ×5; J3475; J7120; J1650 ×2; G0378 ×5

== ENCOUNTER 2023-10-26 00:06 | Emergency (ER) | payer MEDICARE ==
[~2023-10-26] VITALS: Ht 175.3 cm; Wt 65.8 kg
[~2023-10-26 00:06] MED LIST changes: -ACET-2079 PO; -AMYL1CAP61 PO; -BENZ-226 PO; +CEPH500B PO; -GUAI5SYR PO; -LEVO-70 PO; +ZOLP10TA2 PO; -iron PO
[2023-10-26 01:05] LABS: BASOPHILS # (AUTO) 0.05 K/uL (0.00-0.20); BASOPHILS % (AUTO) 0.9 % (0.0-5.0); EOSINOPHILS # (AUTO) 0.14 K/uL (0.00-0.70); EOSINOPHILS % (AUTO) 2.4 % (0.0-8.0); HEMATOCRIT 25.2 % (42-54); IMMATURE GRANULOCYTE ABSOLUTE 0.02 K/uL (0-1); LYMPHOCYTES # (AUTO) 1.2 K/uL (1.0-4.8); LYMPHOCYTES % (AUTO) 19.8 % (21.0-51.0); MEAN CORPUSCULAR HEMOGLOBIN 30.9 pg (27.0-33.0); MEAN CORPUSCULAR HGB CONC 32.5 g/dL (32.0-36.0); MEAN CORPUSCULAR VOLUME 95.1 fL (79-99); MONOCYTES # (AUTO) 0.6 K/uL (0.1-1.0); MONOCYTES % (AUTO) 10.1 % (3.0-13.0); NEUTROPHILS # (AUTO) 3.9 K/uL (1.8-7.7); NEUTROPHILS % (AUTO) 66.5 % (40.0-77.0); PLATELET COUNT (AUTO) 193 K/uL (130-400); RED BLOOD CELL COUNT(AUTO) 2.65 MIL/uL (4.50-6.20); RED CELL DISTRIBUTION WIDTH 17.6 % (11.0-15.5); WHITE BLOOD COUNT (AUTO) 5.9 K/uL (4.8-10.8)
[2023-10-26 01:18] LABS: CREATININE 0.8 mg/dL (0.5-1.5); POTASSIUM 4.1 mmol/L (3.5-5.1)
[2023-10-26 01:21] LABS: INR 0.98 (0.85-1.15); PROTHROMBIN TIME 11.4 SEC (9.6-11.6)
[2023-10-26 01:22] LABS: PARTIAL THROMBOPLASTIN TIME 28.1 SEC (26.3-35.5)
[2023-10-26 01:28] LABS: ALBUMIN 2.7 g/dL (3.5-5.0); BILIRUBIN,TOTAL 0.3 mg/dL (0.2-1.0); TOTAL PROTEIN, SERUM 5.7 g/dL (6.0-8.3)
[2023-10-26 01:49] LABS: B-TYPE NATRIURETIC PEPTIDE 26 pg/mL (0-100)
[2023-10-26] MEDS ORDERED: IOHEXOL-350 75 ML VIAL IV ONE (02:16)
[2023-10-26] MEDS ORDERED: ALBU90AE2 IH (03:24)
[2023-10-26] MEDS ORDERED: IBUP-1493 PO (03:24)
[2023-10-26 05:19] VITALS: BP 125/74; PULSE 88; RESP 20; O2SAT 99
== END 2023-10-26 06:15 | disposition home or self-care (01) ==
LOC: EDH 00:06
DX: C78.7 Secondary malignant neoplasm of liver and intrahepatic bile duct (principal); R06.00 Dyspnea, unspecified; M19.90 Unspecified osteoarthritis, unspecified site; I10 Essential (primary) hypertension; E03.9 Hypothyroidism, unspecified; Z79.1 Long term (current) use of non-steroidal anti-inflammatories (NSAID); Z79.82 Long term (current) use of aspirin; Z79.890 Hormone replacement therapy; Z79.899 Other long term (current) drug therapy; Z85.118 Personal history of other malignant neoplasm of bronchus and lung; Z90.411 Acquired partial absence of pancreas; Z90.49 Acquired absence of other specified parts of digestive tract
CPT/HCPCS: 99285; 71270; 84484; 80053; 83880; 85025; 85610; 85730; 36415; 93005; Q9967